=== PATIENT | female | born 1985 | race Caucasian/White ===

== ENCOUNTER 2019-06-13 14:25 | Inpatient (IN) | payer OTHER ==
--- NOTE | 2019-06-13 15:09 | XR ---
EXAMINATION TYPE: XR chest 2V DATE OF EXAM: 06/13/2019 COMPARISON: NONE HISTORY: Pneumothorax TECHNIQUE: Frontal and lateral views of the chest are obtained. FINDINGS: Large left pneumothorax is present. No evident pleural effusion. Heart to exclude tension. Heart is small. Apical pleural thickening noted on the right. IMPRESSION: Large left pneumothorax.
[2019-06-13] MEDS ORDERED: KETOROLAC 30 MG/ML 1 ML VIAL IVP STA (15:14)
[2019-06-13] MEDS ORDERED: LIDOCAINE 1% INJ 10MG/ML (20 ML MDV) SQ ONE (15:15)
[2019-06-13] MEDS: MORPHINE SULFATE 4 MG/ML SYRINGE IVP STA ×2 (15:44→15:51)
[2019-06-13 15:46] LABS: Basophils % (A) 0 %; Eosinophils # (A) 0.2 k/uL (0-0.7); Eosinophils % (A) 3 %; HCT 39.7 % (34.0-46.0); HGB 13.6 gm/dL (11.4-16.0); Lymphocytes # (A) 1.4 k/uL (1.0-4.8); Lymphocytes % (A) 22 %; MCH 32.7 pg (25.0-35.0); MCHC 34.3 g/dL (31.0-37.0); MCV 95.6 fL (80.0-100.0); Mean Platelet Volume 7.1; Monocytes # (A) 0.4 k/uL (0-1.0); Monocytes % (A) 7 %; Neutrophils # (A) 4.1 k/uL (1.3-7.7); Neutrophils % (A) 65 %; Platelet Count 377 k/uL (150-450); RBC 4.15 m/uL (3.80-5.40); RDW 12.7 % (11.5-15.5); WBC 6.3 k/uL (3.8-10.6)
[2019-06-13 15:53] LABS: African American GFR (CKD) >90 (>60 ml/min/1.73 sqM); Anion Gap 10 mmol/L; Blood Urea Nitrogen 12 mg/dL (7-17); Calcium 9.8 mg/dL (8.4-10.2); Carbon Dioxide 22 mmol/L (22-30); Chloride 107 mmol/L (98-107); Glucose 92 mg/dL (74-99); Non-African American GFR(CKD) >90 (>60 ml/min/1.73 sqM); Potassium 3.8 mmol/L (3.5-5.1); Sodium 139 mmol/L (137-145)
[2019-06-13] MEDS ORDERED: ACETAMINOPHEN TAB 325 MG TAB PO PRN (15:57)
[2019-06-13] MEDS ORDERED: IBUPROFEN 400 MG TAB PO PRN (15:57)
[2019-06-13] MEDS ORDERED: NALOXONE 0.4 MG/ML 1 ML VIAL IV PRN (15:57)
--- NOTE | 2019-06-13 16:11 | XR ---
EXAMINATION TYPE: XR chest 1V portable DATE OF EXAM: 06/13/2019 COMPARISON: NONE HISTORY: Follow-up pneumothorax TECHNIQUE: Single frontal view of the chest is obtained. FINDINGS: Left-sided left pleural catheter noted. Pneumothorax is much improved and is estimated at 10%. The ca rdiac silhouette size is within normal limits. The osseous structures are intact. IMPRESSION: 1. Left-sided left pleural catheter noted. Pneumothorax is much improved and is estimated at 10%.
--- NOTE | 2019-06-13 16:11 | ED ---
General Adult HPI - General Chief complaint: Recheck/Abnormal Lab/Rx Stated complaint: Collapsed Lung, Chest Pain Time Seen by Provider: 06/13/19 14:36 Source: patient, RN notes reviewed, old records reviewed Mode of arrival: wheelchair Limitations: no limitations - History of Present Illness Initial comments: 33-year-old female presents for evaluation of abnormal outpatient x-ray. Patient states she's had some minor left-sided mid back pain as well as some dyspnea over the past one week. Yesterday she had several episodes of nausea vomiting. She was sent by her primary care physician for an outpatient chest x- ray which showed a pneumothorax. She presented to the emergency department for evaluation. Patient denies pain complaints time my evaluation, denies significant dyspnea. She states she's had a mild cough. She is a smoker. - Related Data Allergies Allergy/AdvReac Type Severity Reaction Status Date / Time No Known Allergies Allergy Verified 06/13/19 14:35 Review of Systems ROS Statement: Those systems with pertinent positive or pertinent negative responses have been documented in the HPI. ROS Other: All systems not noted in ROS Statement are negative. Past Medical History Past Medical History: No Reported History History of Any Multi-Drug Resistant Organisms: None Reported Past Surgical History: No Surgical Hx Reported Past Psychological History: No Psychological Hx Reported Smoking Status: Current every day smoker Past Alcohol Use History: Occasional Past Drug Use History: None Reported General Exam Limitations: no limitations General appearance: alert, in no apparent distress Head exam: Present: atraumatic, normocephalic Eye exam: Present: normal appearance, PERRL ENT exam: Present: normal exam Neck exam: Present: normal inspection. Absent: tenderness, meningismus Respiratory exam: Present: respiratory distress (mild), decreased breath sounds (Decreased air entry on the left) Cardiovascular Exam: Present: regular rate, normal rhythm GI/Abdominal exam: Present: soft, distended Extremities exam: Present: normal inspection, normal capillary refill. Absent: pedal edema Neurological exam: Present: alert, oriented X3, CN II-XII intact. Absent: motor sensory deficit Psychiatric exam: Present: normal affect, normal mood Skin exam: Present: warm, dry, intact. Absent: cyanosis, diaphoretic Course Vital Signs 06/13/19 06/13/19 06/13/19 14:32 15:44 15:54 Temperature 98.8 F Pulse Rate 97 82 73 Respiratory 18 18 18 Rate Blood Pressure 113/88 136/84 128/81 O2 Sat by Pulse 95 99 100 Oximetry Procedures - Benson Protocol (Time Out) Procedure Performed:: thoravent insertion Nurse: Adelita Cifuentes Patient Identification (2 identifiers required): Verbal, Arm Band, Name, Birthdate Patient/Legal Government Guard has Confirmed: Identity, Site, Procedure, Consent Site: (L) chest Site Marked: Not Applicable Site Verified With Patient/Guardian: Yes Final Confirmation: Procedure, Site, Special Equipment, Confirmed w/Provider - Chest Tube Insertion Consent Obtained: written consent Side of Procedure: left Indication: Pneumothorax Placed on monitor/pulse oximetry: Yes Site Prep: Chloroprep Local Anesthesia: Lidocaine 1% Amount (mLs): 5 Insertion Site: Other (Second intercostal space, mid clavicular line) Scalpel: #11 Open into Pleural Space Using: Trocar Tube Size (Danish): Other (7-Danish) Returns: Air Sutured in Place: No Attached to Suction: Yes Type of Suction: Pleuravac Repeat X-ray Results: Lung Inflated Patient Tolerated Procedure: well Medical Decision Making - Medical Decision Making 33-year-old female presenting with spontaneous pneumothorax, mild dyspnea and cough. Patient has decreased air entry in the left. X-rays repeated in the emergency department showing large left-sided pneumothorax. I did discuss this case with pulmonology Dr. Murphy, regarding chest tube placement. Recommends placement in the emergency department. Patient signs consent and a left anterior mid clavicular thoravent is placed in the emergency department. X-ray shows nearly complete expansion of the left lung. Patient's vitals remained stable both prior to, during and after the procedure. She will be admitted with pulmonology on consult. IV is established, laboratory studies will be sent these are pending. - Lab Data Result diagrams: 06/13/19 15:25 06/13/19 15:25 Lab Results 06/13/19 06/13/19 Range/Units 15:25 15:25 WBC 6.3 (3.8-10.6) k/uL RBC 4.15 (3.80-5.40) m/uL Hgb 13.6 (11.4-16.0) gm/dL Hct 39.7 (34.0-46.0) % MCV 95.6 (80.0-100.0) fL MCH 32.7 (25.0-35.0) pg MCHC 34.3 (31.0-37.0) g/dL RDW 12.7 (11.5-15.5) % Plt Count 377 (150-450) k/uL Neutrophils % 65 % Lymphocytes % 22 % Monocytes % 7 % Eosinophils % 3 % Basophils % 0 % Neutrophils # 4.1 (1.3-7.7) k/uL Lymphocytes # 1.4 (1.0-4.8) k/uL Monocytes # 0.4 (0-1.0) k/uL Eosinophils # 0.2 (0-0.7) k/uL Basophils # 0.0 (0-0.2) k/uL Sodium 139 (137-145) mmol/L Potassium 3.8 (3.5-5.1) mmol/L Chloride 107 (98-107) mmol/L Carbon Dioxide 22 (22-30) mmol/L Anion Gap 10 mmol/L BUN 12 (7-17) mg/dL Creatinine 0.55 (0.52-1.04) mg/dL Est GFR (CKD-EPI)AfAm >90 (>60 ml/min/1.73 sqM) Est GFR (CKD-EPI)NonAf >90 (>60 ml/min/1.73 sqM) Glucose 92 (74-99) mg/dL Calcium 9.8 (8.4-10.2) mg/dL Critical Care Time Critical Care Time: Yes Total Critical Care Time: 35 Disposition Clinical Impression: Spontaneous pneumothorax Disposition: ADMITTED IP TO THIS [facility] Condition: Stable Is patient prescribed a controlled substance at d/c from ED?: No Referrals: Shen Jacobo Jr, DO [Primary Care Provider] - 1-2 days Decision to Admit Reason: Admit from EC Decision Date: 06/13/19 Decision Time: 16:10
--- NOTE | 2019-06-13 17:24 | P.HPIM ---
History of Present Illness H&P Date: 06/13/19 Chief Complaint: spontaneous left pneumothorax this is a 33-year-old very pleasant female with spontaneous left pneumothorax initially only approximately 15%, send patient to emergency room at [facility] the x-ray was repeated at which time it showed a large of more than 50% p neumothorax. Patient had a thorough vent placed repeat chest x-ray demonstrates a completely inflated lung. Patient has had a small amount of chest discomfort over the last week and slight discomfort with deep deep breaths. It is a known smoker other than childbirth has never been hospitalized never been ill Review of Systems Constitutional: Reports as per HPI Ears, nose, mouth and throat: Reports as per HPI Cardiovascular: Reports dyspnea on exertion Respiratory: Reports pain on inspiration (very mild discomfort on inspiration) Genitourinary: Reports as per HPI Menstruation: Reports as per HPI Musculoskeletal: Reports as per HPI Integumentary: Reports as per HPI Neurological: Reports as per HPI Past Medical History Past Medical History: No Reported History History of Any Multi-Drug Resistant Organisms: None Reported Past Surgical History: No Surgical Hx Reported Past Psychological History: No Psychological Hx Reported Smoking Status: Current every day smoker Past Alcohol Use History: Occasional Past Drug Use History: None Reported Medications and Allergies Home Medications Medication Instructions Recorded Confirmed Type Amoxicillin 875 mg PO BID 06/13/19 06/13/19 History Ibuprofen [Motrin] 800 mg PO TID PRN 06/13/19 06/13/19 History medroxyPROGESTERone [Depo-Provera] 150 mg IM Q90D 06/13/19 06/13/19 History Allergies Allergy/AdvReac Type Severity Reaction Status Date / Time No Known Allergies Allergy Verified 06/13/19 16:21 Physical Exam Osteopathic Statement: *. No significant issues noted on an osteopathic structural exam other than those noted in the History and Physical/Consult. Vitals: Vital Signs Temp Pulse Resp BP Pulse Ox 06/13/19 16:00 78 18 126/85 98 06/13/19 15:54 73 18 128/81 100 06/13/19 15:44 82 18 136/84 99 06/13/19 14:32 98.8 F 97 18 113/88 95 Intake and Output 06/13/19 06/13/19 06/13/19 06:59 14:59 22:59 Other: Weight 58.967 kg General: [Patient awake, alert and oriented times 3. Patient in no acute distress.] HEENT: [PERRL. EOMI. No pharyngeal erythema or exudate.] Neck: [No adenopathy.] Cardiac: [Heart regular in rate and rhythm. No S3. No S4. No clicks, rubs. No murmur.] Lungs: [Clear to auscultation bilaterally.left side thoravent Abdomen: [No mass. No organomegaly. Bowel sounds presnt and normoactive in all 4 quadrants.] Extremes: [No edema no cyanosis no claudication normal pulses] : normal female genitalia Musculoskeletal: [No joint erythema, edema or tenderness.] Skin: [No rash.] Neurologic: [No lateralizing deficits. CN II - XII grossly intact.] Lymphatic: [No adenopathy.] Results CBC & Chem 7: 06/13/19 15:25 06/13/19 15:25 Assessment and Plan (1) Spontaneous pneumothorax Narrative/Plan: 33-year-old female cigarette smoker spontaneous pneumo Recommend smoking cessation Heimlich valve in the morning Lung remains inflated probably home in the afternoon to enjoy Kelly Current Visit: Yes Status: Acute Code(s): J93.83 - OTHER PNEUMOTHORAX SNO MED Code(s): 30654426 Time with Patient: Greater than 30
--- NOTE | 2019-06-13 17:53 | P.CNPUL ---
History of Present Illness Consult date: 06/13/19 Reason for consult: pneumothorax Chief complaint: left-sided chest pain and shortness of breath History of present illness: this is a 33-year-old female with no previous medical history, smoker, patient presented to the ER with 1 week history of left-sided chest discomfort, shortness of breath, pleuritic chest pain especially over the scapula for the last 1 week. Chest x-ray showed 50% pneumothorax. Patient had a thoravent placed by the ER physician, and her lung fully expanded. Patient was admitted, her chest tube is connected to suction, and I was asked to see her on consultation. During my evaluation, patient was asymptomatic, she had no chest pain, no cough, no wheezing, no shortness of breath. I reviewed the chest x-ray prior to chest tube placement and the chest x-ray after the tube placement and t here is clearly a significant improvement. Patient had no previous history of pneumothorax, she had no previous history of trauma to the chest. Review of Systems constitutional: Denies fever chills or weight loss. HEENT: Denies any blurred vision sore throat earache or headache. Pulmonary: As noted in HPI. Cardiac: Denies any symptoms of syncope, no palpitations, no anginal symptoms. No orthopnea no PND. GI: Denies any nausea vomiting abdominal pain melena or hematemesis Genitourinary: Denies any dysuria frequency urgency or hematuria. Musko skeletal denies any arthralgia or myalgia. Neurologic: Denies any headache blurred vision no dizziness Psychiatric denies any symptoms of active depression Hematologic: Denies any clotting bleeding or bruising Skin: Denies any pruritus or rashes. Endocrine: Denies any heat or cold intolerance denies any polyuria place regular polydipsia. Past Medical History Past Medical History: No Reported History History of Any Multi-Drug Resistant Organisms: None Reported Past Surgical History: No Surgical Hx Reported Past Psychological History: No Psychological Hx Reported Smoking Status: Current every day smoker Past Alcohol Use History: Occasional Past Drug Use History: None Reported Medications and Allergies Home Medications Medication Instructions Recorded Confirmed Type Amoxicillin 875 mg PO BID 06/13/19 06/13/19 History Ibuprofen [Motrin] 800 mg PO TID PRN 06/13/19 06/13/19 History medroxyPROGESTERone [Depo-Provera] 150 mg IM Q90D 06/13/19 06/13/19 History Allergies Allergy/AdvReac Type Severity Reaction Status Date / Time No Known Allergies Allergy Verified 06/13/19 16:21 Physical Exam Vitals: Vital Signs Temp Pulse Pulse Resp BP BP Pulse Ox 06/13/19 17:14 98.1 F 76 17 139/79 97 06/13/19 16:00 78 18 126/85 98 06/13/19 15:54 73 18 128/81 100 06/13/19 15:44 82 18 136/84 99 06/13/19 14:32 98.8 F 97 18 113/88 95 Intake and Output 06/13/19 06/13/19 06/13/19 06:59 14:59 22:59 Other: Weight 58.967 kg Physical Exam: Revealed a 33-year-old female in no distress. Head: Atraumatic normocephalic. HEENT:[Neck is supple.] [No neck masses.] [No thyromegaly.] [No JVD.] Chest: [Clear throughout, no crackles, no rhonchi, no wheezes.]left sided chest tube is noted/thoravent, connected to Pleuravac. Cardiac Exam: [Normal S1 and S2, no S3 gallop, no murmur.] Abdomen: [Soft, nontender, no megaly, no rebound, no guarding, normal bowel sounds.] Extremities: [No clubbing, no edema, no cyanosis.] Neurological Exam: [No focal neurologic deficit.] psychiatric: Normal mood affect and normal mental status examination. Skin: No rashes. Results - Laboratory Findings CBC and BMP: 06/13/19 15:25 06/13/19 15:25 - Diagnostic Findings Chest x-ray: image reviewed (as noted in HPI.) Assessment and Plan Assessment: impression: Acute spontaneous left-sided pneumothorax Tobacco dependence syndrome Status post placement of a thoravent by the ER physician and complete expansion of the left lung. Recommendation: Continue chest tube to suction. Counseled regarding smoking cessation. Repeat chest x-ray in a.m., consider changing chest tube to waterseal, and hopefully can send the patient home with tube in place, and have her follow-up with me on outpatient basis in the office Thoracic surgery will evaluate in a.m., consult was initiated we'll continue to follow discussed her condition with her and her primary care physician Dr. Jacobo.. Time with Patient: Greater than 30
[2019-06-13] MEDS: HYDROmorphone 0.5 MG/0.5 ML SYRINGE IVP PRN ×2 (17:57→21:03)
[2019-06-14] MEDS: HYDROmorphone 0.5 MG/0.5 ML SYRINGE IVP PRN ×4 (00:16→10:15)
[2019-06-14 00:49] VITALS: TEMP 98.3
--- NOTE | 2019-06-14 08:21 | XR ---
EXAMINATION TYPE: XR chest 2V DATE OF EXAM: 06/14/2019 COMPARISON: Prior chest x-ray 06/13/2019 HISTORY: Pneumothorax TECHNIQUE: Frontal and lateral views of the chest are obtained. FINDINGS: Small left apical pneumothorax is noted, left-sided chest tube is in place. Subcutaneous e mphysema noted. No evident pleural effusion. Heart size is unchanged. Apical pleural thickening noted on the right. IMPRESSION: Small left apical pneumothorax.
[2019-06-14 08:50] VITALS: BP 101/65; PULSE 56; RESP 16
--- NOTE | 2019-06-14 08:59 | P.GSCN ---
History of Present Illness Consult date: 06/14/19 Reason for Consult: Left-sided spontaneous pneumothorax Requesting physician: Newton Murphy History of present illness: This is a 33-year-old active female who follows on an outpatient basis with Dr. Jacobo. She has no previous medical history except current tobacco dependence. Apparently she had been experiencing left-sided chest discomfort and shortness of breath for approximately 1 week. She presented to [facility] emergency room, chest x-ray demonstrated 50% left-sided pneumothorax. She denied any chest trauma or any previous history of spontaneous pneumothorax. A thoravent was placed by the emergency room physicians with almost complete reexpansion. She was admitted for further management with consultation placed to pulmonology. Her thoravent was connected to an atrium, and placed to contin uous suction upon admit to the floor. Consultation was placed to Dr. López from cardiothoracic surgery for further management. Review of Systems Review of systems was completed and was negative except as noted in the HPI - Respiratory Reports dyspnea, Reports pain, Reports pain on inspiration Past Medical History Past Medical History: No Reported History History of Any Multi-Drug Resistant Organisms: None Reported Past Surgical History: No Surgical Hx Reported Past Psychological History: No Psychological Hx Reported Smoking Status: Current every day smoker Past Alcohol Use History: Occasional Past Drug Use History: None Reported - Past Family History Mother Family Medical History: No Reported History Father Family Medical History: No Reported History Medications and Allergies Home Medications Medication Instructions Recorded Confirmed Type Amoxicillin 875 mg PO BID 06/13/19 06/13/19 History Ibuprofen [Motrin] 800 mg PO TID PRN 06/13/19 06/13/19 History medroxyPROGESTERone [Depo-Provera] 150 mg IM Q90D 06/13/19 06/13/19 History Allergies Allergy/AdvReac Type Severity Reaction Status Date / Time No Known Allergies Allergy Verified 06/13/19 16:21 Surgical - Exam Vital Signs Temp Pulse Resp BP Pulse Ox 98.8 F 97 18 113/88 95 06/13/19 14:32 06/13/19 14:32 06/13/19 14:32 06/13/19 14:32 06/13/19 14:32 - General Patient does continue to have slight discomfort at the thoravent insertion site well developed, well nourished, no distress - Eyes PERRL, normal ocular movement - ENT normal mucosa - Neck no masses, no bruits, trachea midline - Respiratory Lungs sounds clear bilaterally. Respirations even, nonlabored. Currently on room air with oxygen saturation 98%. Strong cough. No chest wall deformities, no clubbing or cyanosis present. Left sided thoravent present to waterseal since x-ray this morning, no air leak present. - Cardiovascular S1, S2 present. Regular rate and rhythm. Palpable peripheral pulses bilaterally. No edema present. No calf pain or tenderness noted. - Abdomen Abdomen: soft, non tender, bowel sounds - Genitourinary Deferred - Rectum Deferred - Integumentary no rash, no growths, no abnormal pigmentation - Neurologic normal coordination, normal sensation - Musculoskeletal normal posture - Psychiatric oriented to time, oriented to person, oriented to place, speech is normal, memory intact Results - Labs 06/13/19 15:25 06/13/19 15:25 Diabetes panel 06/13/19 Range/Units 15:25 Sodium 139 (137-145) mmol/L Potassium 3.8 (3.5-5.1) mmol/L Chloride 107 (98-107) mmol/L Carbon Dioxide 22 (22-30) mmol/L BUN 12 (7-17) mg/dL Creatinine 0.55 (0.52-1.04) mg/dL Glucose 92 (74-99) mg/dL Calcium 9.8 (8.4-10.2) mg/dL Calcium panel 06/13/19 Range/Units 15:25 Calcium 9.8 (8.4-10.2) mg/dL Pituitary panel 06/13/19 Range/Units 15:25 Sodium 139 (137-145) mmol/L Potassium 3.8 (3.5-5.1) mmol/L Chloride 107 (98-107) mmol/L Carbon Dioxide 22 (22-30) mmol/L BUN 12 (7-17) mg/dL Creatinine 0.55 (0.52-1.04) mg/dL Glucose 92 (74-99) mg/dL Calcium 9.8 (8.4-10.2) mg/dL Adrenal panel 06/13/19 Range/Units 15:25 Sodium 139 (137-145) mmol/L Potassium 3.8 (3.5-5.1) mmol/L Chloride 107 (98-107) mmol/L Carbon Dioxide 22 (22-30) mmol/L BUN 12 (7-17) mg/dL Creatinine 0.55 (0.52-1.04) mg/dL Glucose 92 (74-99) mg/dL Calcium 9.8 (8.4-10.2) mg/dL - Imaging Chest x-ray: image reviewed Assessment and Plan Assessment: 1. Spontaneous left-sided pneumothorax, first event, status post thoravent placement by the emergency room physicians 2. Current tobacco dependence Plan: The patient was seen and examined at the bedside. Chart/diagnostics were reviewed. Case will be discussed in detail with Dr. Dennison. Chest x-ray this morning is stable. There is no air leak present in the atrium. Atrium was removed and waterseal cap was placed to the thoravent with no fluctuation in the red diaphragm. We will obtain a repeat CXR after having been on water seal for 2 hours. If repeat CXR is stable, from our standpoint patient may be discharged to home to follow-up with Dr. Dennison on 06/16/19 for Thoravent removal, with CXR to be completed prior to appointment. She was taught what to look for with the red diaphragm movement. Our contact information was provided should she have any questions. Recommend discharge medications Motrin and Tylenol for pain control. Incentive spirometry was ordered and she should be encouraged to utilize it. We strongly recommended smoking cessation. Discharge planning per primary care services. Thank you Dr. Murphy for this consult. Please call us with any further questions. Time with Patient: Greater than 30
--- NOTE | 2019-06-14 10:30 | P.PN ---
Subjective Progress Note Date: 06/14/19 Principal diagnosis: Left-sided chest pain and shortness of breath this is a 33-year-old female with no previous medical history, smoker, patient presented to the ER with 1 week history of left-sided chest discomfort, shortness of breath, pleuritic chest pain especially over the scapula for the last 1 week. Chest x-ray showed 50% pneumothorax. Patient had a thoravent placed by the ER physician, and her lung fully expanded. Patient was admitted, her chest tube is connected to suction, and I was asked to see her on consultation. During my evaluation, patient was asymptomatic, she had no chest pain, no cough, no wheezing, no shortness of breath. I reviewed the chest x-ray prior to chest tube placement and the chest x-ray after the tube placement and there is clearly a significant improvement. Patient had no previous history of pneumothorax, she had no previous history of trauma to the chest. On 06/14/2017 patient seen in follow-up on medical surgical floor. Patient had her Thoravent to waterseal last night, and this morning the pleuravac was removed, and waterseal plug was placed. Chest x-ray shows small left apical pneumothorax, no shortness of breath, some slight discomfort in her left chest due to the presence of a chest tube. No acute distress, room air pulse ox is 98%, hemodynamically stable, no fever or chills, lung sounds reveal equal breath sounds bilaterally, no new labs today, CT surgery is following, and repeat chest x-ray is pending, if the left lung stays expanded patient will be considered for discharge home with the Thoravent in place. Objective - Vital Signs Vital signs: Vital Signs Temp 98.3 F 06/14/19 07:00 Pulse 56 L 06/14/19 07:00 Resp 16 06/14/19 07:00 BP 101/65 06/14/19 07:00 Pulse Ox 98 06/14/19 08:42 Intake & Output 06/13/19 06/14/19 06/14/19 18:59 06:59 18:59 Intake Total 120 Balance 120 Weight 58.967 kg Intake: Oral 120 Other: Voiding Method Toilet - Exam GENERAL EXAM: Alert, very pleasant, 33-year-old white female, with left chest Thoravent in place, room air pulse ox 98%, comfortable in no apparent distress. HEAD: Normocephalic/atraumatic. EYES: Normal reaction of pupils, equal size. Conjunctiva pink, sclera white. NOSE: Clear with pink turbinates. THROAT: No erythema or exudates. NECK: No masses, no JVD, no thyroid enlargement, no adenopathy. CHEST: No chest wall deformity. Symmetrical expansion. left sided Thoravent in place LUNGS: Equal air entry with no crackles, wheeze, rhonchi or dullness. CVS: Regular rate and rhythm, normal S1 and S2, no gallops, no murmurs, no rubs ABDOMEN: Soft, nontender. No hepatosplenomegaly, normal bowel sounds, no guarding or rigidity. EXTREMITIES: No clubbing, no edema, no cyanosis, 2+ pulses and upper and lower extremities. MUSCULOSKELETAL: Muscle strength and tone normal. SPINE: No scoliosis or deformity SKIN: No rashes CENTRAL NERVOUS SYSTEM: Alert and oriented -3. No focal deficits, tone is normal in all 4 extremities. PSYCHIATRIC: Alert and oriented -3. Appropriate affect. Intact judgment and insight. - Labs CBC & Chem 7: 06/13/19 15:25 06/13/19 15:25 Assessment and Plan Plan: Assessment: #1. Acute spontaneous left-sided pneumothorax #2. Tobacco dependence syndrome #3. Status post placement of a Thoravent by ER physician and complete expansion of the left Plan: Chest x-ray has been reviewed, showing very small left apical pneumothorax, left Thoravent was capped with a waterseal plug, repeat chest x-ray is pending, clinically patient is stable, she is working on incentive spirometer, equal breath sounds bilaterally, she is on room air, hemodynamically stable, she'll be considered for discharge home if lung stays expanded with a Thoravent in place, and she will see Dr. Dennison in the office on June 16. We'll follow-up with Dr. Murphy in the office in one week I performed a history & physical examination of the patient and discussed their management with my nurse practitioner, Triny Calzada. I reviewed the nurse practitioner's note and agree with the documented findings and plan of care. Lung sounds are positive for clear breath sounds. The findings and the impression was discussed with the patient. I attest to the documentation by the nurse practitioner. Time with Patient: Less than 30
--- NOTE | 2019-06-14 10:46 | P.DS ---
Providers Date of admission: 06/13/19 15:57 Expected date of discharge: 06/14/19 Attending physician: Shen Jacobo Consults: 06/13/19 15:58 Consult Physician Urgent Consulting Provider: Newton Murphy Consult Reason/Comments: Spontaneous pneumo Do you want consulting provider notified?: Already Contacted 06/13/19 16:28 Consult Physician Routine Consulting Provider: Marley López Consult Reason/Comments: ptx spontaneous Do you want consulting provider notified?: Yes, Notify in am Primary care physician: Shen Jacobo - Discharge Diagnosis(es) (1) Spontaneous pneumothorax spurs presented to the office approximately one week ago with minimal complaint of chest discomfort known smoker is placed on amoxicillin Turned to the office yesterday morning with persistent complaint, was sent to the hospital for a chest x-ray, subsequent 10-15% pneumothorax was noted I was notified by radiology, had the medical office asst no constipation down and much to my surprise the patient had presented back to the office for her Depo- Provera shot By this time I have made arrangements at [facility] for ER evaluation, repeat chest x-ray and admission Repeat chest x-ray by this time demonstrated approximately 50% pneumo patient was satting at 100% with very little discomfort Was subsequently admitted with a consultation with pulmonary medicine, thoracic surgery, and a subsequent Flovent chest tube was placed in the second left intercostal space and patient was made to be comfortable General: [Patient awake, alert and oriented times 3. Patient in no acute distress.] HEENT: [PERRL. EOMI. No pharyngeal erythema or exudate.] Neck: [No adenopathy.] Cardiac: [Heart regular in rate and rhythm. No S3. No S4. No clicks, rubs. No murmur.] Lungs: [Clear to auscultation bilaterally.chest tube second intercostal space left side Abdomen: [No mass. No organomegaly. Bowel sounds presnt and normoactive in all 4 quadrants.] Extremes: [No edema no cyanosis no claudication normal pulses] : [normal female genitalia] Musculoskeletal: [No joint erythema, edema or tenderness.] Skin: [No rash.] Neurologic: [No lateralizing deficits. CN II - XII grossly intact.] Lymphatic: [No adenopathy.] Current Visit: Yes Status: Acute Hospital Course: same as above Assessment: same Patient Condition at Discharge: Stable Plan - Discharge Summary New Discharge Prescriptions: No Action Ibuprofen [Motrin] 800 mg PO TID PRN PRN Reason: Pain Amoxicillin 875 mg PO BID medroxyPROGESTERone [Depo-Provera] 150 mg IM Q90D Discharge Medication List Amoxicillin 875 mg PO BID 06/13/19 [History] Ibuprofen [Motrin] 800 mg PO TID PRN 06/13/19 [History] medroxyPROGESTERone [Depo-Provera] 150 mg IM Q90D 06/13/19 [History] Follow up Appointment(s)/Referral(s): Newton Murphy MD [STAFF PHYSICIAN] - 1 Week Shen Jacobo Jr, DO [Primary Care Provider] - 1-2 days Jakob Dennison MD [STAFF PHYSICIAN] - 06/16/19 12:30 pm (Please obtain X-ray at the hospital @ 11:00 before your appointment) Ambulatory/Diagnostic Orders: XR chest 2V [RAD.AMB] Time Frame: 06/16/19, Facility: [facility], Location: [facility] Discharge Disposition: HOME SELF-CARE
--- NOTE | 2019-06-14 12:46 | XR ---
EXAMINATION TYPE: XR chest 2V DATE OF EXAM: 06/14/2019 COMPARISON: Chest x-ray earlier today. HISTORY: Left lung pneumothorax and chest tube. TECHNIQUE: Frontal and lateral views of the chest are obtained. FINDINGS: There is stable size small left apical pneumothorax left anterior chest tube extending inf eriorly after suction is turned off. No mediastinal shift. [id number] biapical pleural/parenchy mal scarring. The cardiac silhouette size remains within normal limits. The osseous structures are intact. IMPRESSION: Stable small size left apical pneumothorax after suction turned off from chest tube.
== END 2019-06-14 11:50 | disposition home or self-care (01) | DRG 201 ==
LOC: EC 14:25 → 4SSUR 15:57
PROVIDERS: ADMIT Family Medicine; ATTEND Family Medicine
PROC: 0W9B30Z Drainage of Left Pleural Cavity with Drainage Device, Percutaneous Approach (ICD-10-PCS; principal; 2019-06-13)
DX: J93.83 Other pneumothorax (principal); F17.210 Nicotine dependence, cigarettes, uncomplicated; Z79.1 Long term (current) use of non-steroidal anti-inflammatories (NSAID); Z79.3 Long term (current) use of hormonal contraceptives
CPT/HCPCS: 32551; 36415; 71045; 71046; 80048; 85025; 94760; 96374; 96375; 99291

== ENCOUNTER → 2019-06-16 | Outpatient (CLI) | payer OTHER ==
--- NOTE | 2019-06-16 11:21 | XR ---
EXAMINATION TYPE: XR chest 2V DATE OF EXAM: 06/16/2019 COMPARISON: 06/14/2019 TECHNIQUE: PA and lateral views submitted. HISTORY: Pneumothorax FINDINGS: The lungs are clear and there is no pleural effusion or focal pneumonia. Left-sided chest tube seen and there is a stable approximately 5% left pneumothorax. Right apical pleural thickening noted. Oss eous structures stable. IMPRESSION: 1. Able 5% left apical pneumothorax.
== END | disposition home or self-care (01) ==
LOC: RADXRMAIN 11:08
PROVIDERS: ATTEND Nurse Practitioner Acute Care
DX: J93.83 Other pneumothorax (principal)
CPT/HCPCS: 71046

== ENCOUNTER 2019-06-24 13:00 | Inpatient (IN) | payer OTHER ==
[2019-06-24] MEDS ORDERED: NALOXONE 0.4 MG/ML 1 ML VIAL IV PRN (13:34)
--- NOTE | 2019-06-24 13:34 | ED ---
General Adult HPI - General Chief complaint: Shortness of Breath Stated complaint: Collapsed Lung Time Seen by Provider: 06/24/19 13:18 Source: patient, RN/MD (Case was discussed with Dr. Bynum prior to patient arrival), RN notes reviewed, old records reviewed Mode of arrival: ambulatory Limitations: no limitations - History of Present Illness Initial comments: Patient is a pleasant 33-year-old female presenting to the emergency Department with left shoulder discomfort. Patient did have similar symptoms recently diagnosed with pneumothorax. Patient did have Thora vent placed and removed around a week ago. Patient states left shoulder discomfort is similar to that. Patient did call her doctor and have x-ray done just prior to arrival. He adv ised her to come to the emergency department. Patient does not have shortness of breath. Patient has mild discomfort left anterior chest. - Related Data Home Medications Medication Instructions Recorded Confirmed Amoxicillin 875 mg PO BID 06/13/19 06/13/19 Ibuprofen [Motrin] 800 mg PO TID PRN 06/13/19 06/13/19 medroxyPROGESTERone [Depo-Provera] 150 mg IM Q90D 06/13/19 06/13/19 Allergies Allergy/AdvReac Type Severity Reaction Status Date / Time No Known Allergies Allergy Verified 06/24/19 13:02 Review of Systems ROS Statement: Those systems with pertinent positive or pertinent negative responses have been documented in the HPI. ROS Other: All systems not noted in ROS Statement are negative. Constitutional: Denies: fever Eyes: Denies: eye pain ENT: Denies: ear pain Respiratory: Reports: as per HPI Cardiovascular: Reports: chest pain Endocrine: Denies: fatigue Gastrointestinal: Denies: abdominal pain Genitourinary: Denies: dysuria Musculoskeletal: Reports: as per HPI Skin: Denies: lesions Neurological: Denies: headache Past Medical History Past Medical History: No Reported History Additional Past Medical History / Comment(s): pneumothorax History of Any Multi-Drug Resistant Organisms: None Reported Past Surgical History: No Surgical Hx Reported Additional Past Surgical History / Comment(s): thoravent Past Psychological History: No Psychological Hx Reported Smoking Status: Former smoker Past Alcohol Use History: Occasional Past Drug Use History: None Reported - Past Family History Mother Family Medical History: No Reported History Father Family Medical History: No Reported History General Exam Limitations: no limitations General appearance: alert, in no apparent distress Head exam: Present: normocephalic Eye exam: Present: normal appearance Neck exam: Present: normal inspection Respiratory exam: Present: chest wall tenderness (Minimal tenderness left anteri or chest), decreased breath sounds (Mild decreased air change left side) Cardiovascular Exam: Present: regular rate, normal rhythm GI/Abdominal exam: Present: soft. Absent: tenderness Extremities exam: Present: normal inspection. Absent: pedal edema, calf tenderness Back exam: Present: normal inspection Neurological exam: Present: alert Psychiatric exam: Present: normal affect, normal mood Skin exam: Present: normal color Course Vital Signs 06/24/19 13:02 Temperature 98.3 F Pulse Rate 92 Respiratory 18 Rate Blood Pressure 145/86 O2 Sat by Pulse 98 Oximetry - Reevaluation(s) Reevaluation #1: 06/24/19 13:40 Case was discussed with practitioner Vivian working with Dr. Brunner who does recommend observation and repeat chest x-ray and a proximal he 4 hours. They will consult. Dr. Swartz has been paged. Disposition Clinical Impression: Recurrent spontaneous pneumothorax Disposition: ADMITTED IP TO THIS HOSP Is patient prescribed a controlled substance at d/c from ED?: No Referrals: Shen Jacobo Jr, DO [Primary Care Provider] - 1-2 days Decision Time: 13:34
[2019-06-24 13:53] LABS: Basophils % (A) 0 %; Eosinophils # (A) 0.1 k/uL (0-0.7); Eosinophils % (A) 1 %; HCT 42.7 % (34.0-46.0); HGB 14.1 gm/dL (11.4-16.0); Lymphocytes % (A) 19 %; MCH 31.7 pg (25.0-35.0); MCV 95.8 fL (80.0-100.0); Mean Platelet Volume 7.4; Monocytes # (A) 0.4 k/uL (0-1.0); Monocytes % (A) 4 %; Neutrophils % (A) 75 %; Platelet Count 446 k/uL (150-450); RBC 4.45 m/uL (3.80-5.40); RDW 12.9 % (11.5-15.5); WBC 10.6 k/uL (3.8-10.6)
[2019-06-24] MEDS: SODIUM CHLORIDE 0.9% 1,000 ML IV SCH (13:55)
[2019-06-24 14:07] LABS: ALT 14 U/L (4-34); AST 26 U/L (14-36); African American GFR (CKD) >90 (>60 ml/min/1.73 sqM); Albumin 4.9 g/dL (3.5-5.0); Alkaline Phosphatase 54 U/L (38-126); Anion Gap 11 mmol/L; Blood Urea Nitrogen 8 mg/dL (7-17); Calcium 10.2 mg/dL (8.4-10.2); Carbon Dioxide 21 mmol/L (22-30); Chloride 106 mmol/L (98-107); Glucose 103 mg/dL (74-99); Non-African American GFR(CKD) >90 (>60 ml/min/1.73 sqM); Sodium 138 mmol/L (137-145); Total Bilirubin 0.6 mg/dL (0.2-1.3); Total Protein 7.7 g/dL (6.3-8.2)
[2019-06-24 14:31] LABS: INR 1.1 (<1.2); Prothrombin Time 11.3 sec (9.0-12.0)
[2019-06-24 14:38] LABS: Partial Thromboplastin Time 19.8 sec (22.0-30.0)
[2019-06-24] MEDS: HYDROmorphone 0.5 MG/0.5 ML SYRINGE IVP PRN ×2 (14:41→21:41)
--- NOTE | 2019-06-24 15:26 | XR ---
EXAMINATION TYPE: XR chest 1V portable DATE OF EXAM: 06/24/2019, 3:05 PM Comparison: Earlier today, 12:31 PM Clinical History: 33-year-old female left-sided Pneumothorax Findings: Heart normal size. Aorta and pulmonary vasculature within normal limits. Moderate-sized left superior pneumothorax now measuring 4.5 cm versus 3.6 cm, previously. The lung is now pulling away from the l ateral mid hemithorax. No mediastinal shift. No consolidation or pleural effusion. Impression: Increased, now moderate-sized left pneumothorax measuring 4.5 cm to the apex versus 3.6 cm, previousl y. The lung is now pulling away from the mid aspect of the lateral left hemithorax. Estimated at 30%.
--- NOTE | 2019-06-24 16:11 | P.GSCN ---
History of Present Illness Consult date: 06/24/19 Reason for Consult: Left-sided recurrent pneumothorax Requesting physician: Shen Jacobo Jr History of present illness: This is a 33-year-old active female who follows on an outpatient basis with Dr. Bynum. This young lady had been experiencing left-sided chest discomfort with shortness of breath for approximately 1 week. She presented to [facility] emergency room last week with chest x-ray demonstrating 50% left-sided pneumothorax. She had denied any trauma or previous spontaneous pneumothorax. Thoravent was placed by the emergency room physicians with almost complete reexpansion. She was admitted for a couple of days and was discharged to home on with thoravent present. On June 16 she had a chest x-ray demonstrating approximate 5% residual pneumothorax, no air leak present in the thoravent, no shortness of breath or chest pain and the thoravent was removed in the office by Dr. Dennison. She continued to convalesce at home without any problems until this morning when she developed left shoulder discomfort. Because of her history she contacted her primary care physician who requested a chest x-ray be completed at the hospital. The x-ray demonstrated 15% left-sided pneumothorax. She was taken to the emergency room and admitted for management. Repeat chest x-ray does demonstrate increase in the left-sided pneumothorax with no mediastinal shift. Patient is completely asymptomatic, states her shoulder pain is almost completely gone and denies any shortness of breath, oxygenating well. Dr. Brunner from cardiothoracic surgery was consulted for treatment recommendations. Review of Systems Review of systems was completed and was negative except as noted in the HPI Past Medical History Additional Past Medical History / Comment(s): Left-sided spontaneous pneumothorax 06/13/2019 History of Any Multi-Drug Resistant Organisms: None Reported Past Surgical History: No Surgical Hx Reported Additional Past Surgical History / Comment(s): Thoravent placement 06/13/2019 with removal 06/16/2019 Past Psychological History: No Psychological Hx Reported Smoking Status: Former smoker Past Alcohol Use History: Occasional Past Drug Use History: None Reported - Past Family History Mother Family Medical History: No Reported History Father Family Medical History: No Reported History Medications and Allergies Home Medications Medication Instructions Recorded Confirmed Type medroxyPROGESTERone [Depo-Provera] 150 mg IM Q90D 06/13/19 06/24/19 History Allergies Allergy/AdvReac Type Severity Reaction Status Date / Time No Known Allergies Allergy Verified 06/24/19 13:41 Surgical - Exam Vital Signs Temp Pulse Resp BP Pulse Ox 98.3 F 92 18 145/86 98 06/24/19 13:02 06/24/19 13:02 06/24/19 13:02 06/24/19 13:02 06/24/19 13:02 - General well developed, well nourished, no distress, no pain - Eyes PERRL, normal ocular movement - ENT no hearing loss - Neck no masses, no bruits, trachea midline - Respiratory Lungs sounds clear bilaterally. Respirations even, nonlabored. Currently on room air with oxygen saturation 96%. No chest wall deformities. No clubbing or cyanosis present. - Cardiovascular S1, S2 present. Regular rate and rhythm. Palpable peripheral pulses bilaterally. No edema present. No calf pain or tenderness noted. - Abdomen Abdomen: soft, non tender, bowel sounds - Genitourinary Deferred - Rectum Deferred - Integumentary no rash, no growths - Neurologic normal coordination, normal sensation - Musculoskeletal normal gait, normal posture - Psychiatric oriented to time, oriented to person, oriented to place, speech is normal, memory intact Results - Labs 06/24/19 13:37 06/24/19 13:37 Abnormal Lab Results - Last 24 Hours (Table) 06/24/19 06/24/19 06/24/19 Range/Units 13:37 13:37 13:37 Neutrophils # 8.0 H (1.3-7.7) k/uL APTT 19.8 L (22.0-30.0) sec Carbon Dioxide 21 L (22-30) mmol/L Glucose 103 H (74-99) mg/dL Diabetes panel 06/24/19 Range/Units 13:37 Sodium 138 (137-145) mmol/L Potassium 4.0 (3.5-5.1) mmol/L Chloride 106 (98-107) mmol/L Carbon Dioxide 21 L (22-30) mmol/L BUN 8 (7-17) mg/dL Creatinine 0.59 (0.52-1.04) mg/dL Glucose 103 H (74-99) mg/dL Calcium 10.2 (8.4-10.2) mg/dL AST 26 (14-36) U/L ALT 14 (4-34) U/L Alkaline Phosphatase 54 (38-126) U/L Total Protein 7.7 (6.3-8.2) g/dL Albumin 4.9 (3.5-5.0) g/dL Calcium panel 06/24/19 Range/Units 13:37 Calcium 10.2 (8.4-10.2) mg/dL Albumin 4.9 (3.5-5.0) g/dL Pituitary panel 06/24/19 Range/Units 13:37 Sodium 138 (137-145) mmol/L Potassium 4.0 (3.5-5.1) mmol/L Chloride 106 (98-107) mmol/L Carbon Dioxide 21 L (22-30) mmol/L BUN 8 (7-17) mg/dL Creatinine 0.59 (0.52-1.04) mg/dL Glucose 103 H (74-99) mg/dL Calcium 10.2 (8.4-10.2) mg/dL Adrenal panel 06/24/19 Range/Units 13:37 Sodium 138 (137-145) mmol/L Potassium 4.0 (3.5-5.1) mmol/L Chloride 106 (98-107) mmol/L Carbon Dioxide 21 L (22-30) mmol/L BUN 8 (7-17) mg/dL Creatinine 0.59 (0.52-1.04) mg/dL Glucose 103 H (74-99) mg/dL Calcium 10.2 (8.4-10.2) mg/dL Total Bilirubin 0.6 (0.2-1.3) mg/dL AST 26 (14-36) U/L ALT 14 (4-34) U/L Alkaline Phosphatase 54 (38-126) U/L Total Protein 7.7 (6.3-8.2) g/dL Albumin 4.9 (3.5-5.0) g/dL - Imaging Chest x-ray: report reviewed, image reviewed Assessment and Plan Assessment: 1. Left-sided pneumothorax 2. Previous tobacco dependence Plan: The patient was seen and examined at the bedside with Dr. Brunner. Chart/diagnostics were reviewed. There is a slight increase in the pneumothorax on chest x-ray from earlier today. We did offer patient surgery in the form of video-assisted thoracoscopy with bleb resection and pleurodesis. The usual perioperative course was discussed with the patient, and she is agreeable. We will tentatively plan for surgery Thursday with Dr. López. Will monitor daily chest x-rays. Incentive spirometry was ordered and should be encouraged. Continue to encourage smoking cessation. Medical management of other comorbidities per primary care service. More recommendations to follow. Thank you Dr. Jacobo for this consult. We look forward to working with you in the care of your patient.
[2019-06-24] MEDS: HYDROmorphone 1 MG/ML 1 ML SYRINGE IVP PRN (17:16)
[2019-06-25] MEDS: HYDROmorphone 0.5 MG/0.5 ML SYRINGE IVP PRN ×7 (00:25→22:48)
[2019-06-25] MEDS: SODIUM CHLORIDE 0.9% 1,000 ML IV SCH ×2 (03:24→17:39)
[2019-06-25] MEDS ORDERED: RX INFO: IV CONTRAST WAS GIVEN 1 EACH MISC MISCELLANE PRN (08:01)
--- NOTE | 2019-06-25 08:01 | P.PN ---
Subjective Progress Note Date: 06/25/19 Principal diagnosis: Left-sided recurrent pneumothorax. Previous medical history of left-sided pneumothorax status post thoravent placement in removal approximately week ago, and previous tobacco dependence. The patient's currently sitting up in bed in no acute distress. Denies any pain or shortness of breath. Has been ambulatory in the room without difficulty. Actively using her incentive spirometry. No new concerns. Objective - Vital Signs Vital signs: Vital Signs Temp 98.2 F 06/25/19 00:05 Pulse 58 L 06/25/19 00:05 Resp 14 06/25/19 00:05 BP 129/71 06/25/19 00:05 Pulse Ox 99 06/25/19 00:05 Intake & Output 06/24/19 06/25/19 06/25/19 18:59 06:59 18:59 Intake Total 50 225 Balance 50 225 Weight 61.235 kg Intake: Intake, IV Titration 225 Amount Sodium Chloride 0.9% 1, 225 000 ml @ 75 mls/hr IV . [id number] [facility] Rx#:[id number] Oral 50 - Constitutional General appearance: Present: cooperative, no acute distress - Respiratory Details: Lungs sounds clear bilaterally. Respirations even, nonlabored. Currently on room air with oxygen saturation 99%. Able to achieve 1250 mL on her incentive spirometry. - Cardiovascular Details: S1, S2 present. Regular rate and rhythm, sinus rhythm on telemetry. Palpable peripheral pulses bilaterally. No edema present. No calf pain or tenderness n oted. - Gastrointestinal Gastrointestinal Comment(s): Abdomen soft, nontender, nondistended. Active bowel sounds present 4 quadrants. Tolerating diet. - Genitourinary Genitourinary Comment(s): Continues to void - Integumentary Integumentary Comment(s): Skin is warm and dry with evidence of good perfusion - Neurologic Neurologic: Present: CNII-XII intact - Musculoskeletal Musculoskeletal: Present: gait normal, strength equal bilaterally - Psychiatric Psychiatric: Present: A&O x's 3, appropriate affect, intact judgment & insight - Allied health notes Allied health notes reviewed: nursing - Labs CBC & Chem 7: 06/24/19 13:37 06/24/19 13:37 Labs: Abnormal Lab Results - Last 24 Hours (Table) 06/24/19 06/24/19 06/24/19 Range/Units 13:37 13:37 13:37 Neutrophils # 8.0 H (1.3-7.7) k/uL APTT 19.8 L (22.0-30.0) sec Carbon Dioxide 21 L (22-30) mmol/L Glucose 103 H (74-99) mg/dL - Imaging and Cardiology Chest x-ray: image reviewed Assessment and Plan Assessment: 1. Left-sided pneumothorax 2. Previous tobacco dependence Plan: 1. Plan is for left sided video-assisted thoracoscopy with bleb resection and pleurodesis on June [address] López. 2. Will continue to monitor chest x-rays, will obtain computed tomography scan of the chest to evaluate for blebs 3. Encourage incentive spirometry use 10 times every hour while awake 4. Encourage continued smoking cessation 5. Increase activity, ambulate as tolerated 6. Medical management of other comorbidities per primary care service 7. More recommendations to follow Time with Patient: Greater than 30
--- NOTE | 2019-06-25 08:35 | XR ---
EXAMINATION TYPE: XR chest 2V DATE OF EXAM: 06/25/2019 COMPARISON: 06/24/2019 HISTORY: 33 year-old female left pneumothorax TECHNIQUE: PA and lateral views FINDINGS: Heart normal size. No cardiomediastinal shift. Aorta and pulmonary vasculature is within normal limit s. Redemonstrated left-sided pneumothorax. The apical pleural component is similar at 4.0 cm. Enlargi ng lateral component now extending down to the left base measuring 1.0 cm. Basilar component now also present measuring 6 mm. Anterior component seen on the lateral view. Trace left effusion. IMPRESSION: Slightly enlarging moderate-sized left pneumothorax. Apical component is similar at 4.0 cm but now ne w anterior, lateral, and basilar components are demonstrated. Trace left effusion. No mediastinal patricio ft to suggest tension.
--- NOTE | 2019-06-25 11:01 | CT ---
EXAMINATION TYPE: CT chest w con DATE OF EXAM: 06/25/2019 COMPARISON: Radiograph earlier today HISTORY: 33-year-old female Evaluate Lt sided pneumothorax TECHNIQUE: Contiguous axial scanning of the chest after the administration of 100 mL of Isovue 300. Coronal/sagittal reconstructions performed. CT DLP: 234.6mGycm. Automatic exposure control utilized for a dose reduction. FINDINGS: Heart normal size without pericardial effusion. No cardiomediastinal shift. Aorta normal caliber with bovine configuration to the aortic arch. No thoracic lymphadenopathy by CT size criteria. Moderate-sized left-sided pneumothorax is present. The lung has pulled away from the thoracic wall on all sides except for posteriorly. Estimated at 35%. Small pleural effusion. Some left apical blebs m easure up to 2.2 cm. On the right, additional blebs are present measuring up to 2.0 cm with pleural parenchymal scarring. Tiny hiatal hernia. Visualized upper abdomen otherwise shows no gross abnormality. Bones: No osseous destructive process. IMPRESSION: 1. Left-sided hydropneumothorax with moderate sized pneumothorax estimated at 35%. The lung is pulled away from the thoracic wall on all sides except for posteriorly. Small pleural effusion. 2. Biapical pleural parenchymal scarring and biapical blebs measuring up to 2.2 cm. 3. Tiny hiatal hernia.
--- NOTE | 2019-06-25 12:19 | P.HPIM ---
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 She is a former smoker until last week. She was admitted and had a chest tube to suction. She had significant improvement and a sore event was placed. She was seen outpatient by pulmonology and it was discontinued. She now has a one- day history of pain and discomfort in the left upper chest similar to previous episode. Outpatient x-ray showed a 15% pneumothorax. She was sent to the emergency room yesterday and was found to have ongoing pneumothorax. She is admitted for further treatment. Today she denies any significant chest pains, pressures, or shortness of breath. She denies any nausea or vomiting. She is tolerating regular diet. She complains of some anxiety regarding her health condition. Thoracic surgery consultation is pending Review of Systems All systems: negative Past Medical History Past Medical History: No Reported History Additional Past Medical History / Comment(s): Left-sided spontaneous pneumothorax 06/13/2019 History of Any Multi-Drug Resistant Organisms: None Reported Past Surgical History: No Surgical Hx Reported Additional Past Surgical History / Comment(s): Thoravent placement 06/13/2019 with removal 06/16/2019 Past Psychological History: No Psychological Hx Reported Smoking Status: Former smoker Past Alcohol Use History: Occasional Past Drug Use History: None Reported - Past Family History Mother Family Medical History: No Reported History Father Family Medical History: No Reported History Medications and Allergies Home Medications Medication Instructions Recorded Confirmed Type medroxyPROGESTERone [Depo-Provera] 150 mg IM Q90D 06/13/19 06/24/19 History Allergies Allergy/AdvReac Type Severity Reaction Status Date / Time No Known Allergies Allergy Verified 06/24/19 13:41 Physical Exam Vitals: Vital Signs Temp Pulse Pulse Resp BP BP Pulse Ox 06/25/19 08:55 98.6 F 61 12 126/77 98 06/25/19 00:05 98.2 F 58 L 14 129/71 99 06/24/19 20:00 98.2 F 64 18 120/73 06/24/19 15:18 17 06/24/19 15:05 98.9 F 75 17 124/87 96 06/24/19 14:43 98.6 F 82 18 123/76 98 06/24/19 13:02 98.3 F 92 18 145/86 98 Intake and Output 06/24/19 06/25/19 06/25/19 22:59 06:59 14:59 Intake Total 275 Balance 275 Intake: Intake, IV Titration 225 Amount Sodium Chloride 0.9% 1, 225 000 ml @ 75 mls/hr IV . [id number] [facility] Rx#:[id number] Oral 50 GENERAL: Well-appearing, well-nourished and in no acute distress. HEAD: Atraumatic, normocephalic. EYES: Pupils equal round and reactive to light, extraocular movements intact, sclera anicteric, conjunctiva are normal. ENT:nares patent, oropharynx clear without exudates. Moist mucous membranes. NECK: Normal range of motion, supple without lymphadenopathy or JVD, no thyromegaly LUNGS: Breath sounds clear to auscultation bilaterally with absent breath sounds at the left apex. No wheezes rales or rhonchi. HEART: Regular rate and rhythm without murmurs, rubs or gallops.S1S2 Normal ABDOMEN: Soft, nontender, normoactive bowel sounds. No guarding, no rebound. No masses appreciated. EXTREMITIES: Normal range of motion, no pitting or edema. No clubbing or cyanosis. NEUROLOGICAL: Cranial nerves II through XII grossly intact. Normal speech, normal gait. PSYCH: Normal mood, normal affect. SKIN: Warm, Dry, normal turgor, no rashes or lesions noted. Results CBC & Chem 7: 06/24/19 13:37 06/24/19 13:37 Labs: Abnormal Lab Results - Last 24 Hours (Table) 06/24/19 06/24/19 06/24/19 Range/Units 13:37 13:37 13:37 Neutrophils # 8.0 H (1.3-7.7) k/uL APTT 19.8 L (22.0-30.0) sec Carbon Dioxide 21 L (22-30) mmol/L Glucose 103 H (74-99) mg/dL Thrombosis Risk Factor Assmnt - DVT/VTE Prophylaxis DVT/VTE Prophylaxis: Mechanical Prophylaxis ordered (She will go for surgery on Thursday) - Choose All That Apply Each Risk Factor Represents 3 Points: Family history of DVT/PE Thrombosis Risk Factor Assessment Total Risk Factor Score: 3 Thrombosis Risk Factor Assessment Level: Moderate Risk Assessment and Plan (1) Recurrent spontaneous pneumothorax Current Visit: Yes Status: Acute Code(s): J93.83 - OTHER PNEUMOTHORAX SNOMED Code(s): 87005287 (2) H/O tobacco use, presenting hazards to health Current Visit: Yes Status: Acute Code(s): Z87.891 - PERSONAL HISTORY OF NICOTINE DEPENDENCE SNOMED Code(s): 899417317 Plan: We'll await further recommendations from thoracic surgery. SCDs. Repeat labs in a.m. She'll be reevaluated next 24 hours.
[2019-06-25] MEDS ORDERED: MIDAZOLAM 2 MG/2 ML VIAL IV PRN (15:42)
[2019-06-25] MEDS ORDERED: fentaNYL (PF) 50 MCG/ML 2 ML AMP IV PRN (15:42)
--- NOTE | 2019-06-25 16:54 | CONS ---
CONSULTATION PULMONARY/CRITICAL CARE CONSULTATION: DATE OF SERVICE: 06/25/2019 This is a 33-year-old female who was seen in the emergency room on June 24. She came in for shortness of breath. She was discovered to have a recurrent left-sided pneumothorax. She was recently in the hospital. At that time, she had a Thora-Vent placed. It was removed prior to discharge and unfortunately, she developed a recurrent left-sided pneumothorax. She is admitted to the hospital and will apparently have surgery by one of the cardiothoracic surgeons on Thursday. I suspect they will do a VATS apical bleb resection and mechanical pleurodesis. Looking at her CT scan, her pneumothorax on the left is very obvious and very obvious also on chest x-ray. In addition, looking at the right apex, she has significant cysts and blebs. 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 She also smokes marijuana. Anyway, the patient is scheduled for surgery on Thursday. I believe it is going to be Dr. López. Currently, she is not complaining of much. She does not have much in the way of shortness of breath, chest pain or chest discomfort. The pneumothorax is present on x-rays and CAT scans. There is no fever or chills. There is no nausea, vomiting, diarrhea. No genitourinary complaints. HOME MEDICATIONS: Apparently included Augmentin, Motrin, and she gets Depo-Provera shots 150 mg every 3 months. ALLERGIES: Denied. PAST MEDICAL HISTORY: Positive only for a recent left-sided pneumothorax. 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 Otherwise, no significant past medical history. SURGICAL HISTORY: Only includes a recent left-sided Thora-Vent which was removed prior to discharge. SOCIAL HISTORY: Positive for previous tobacco use. She states she is not going to smoke anymore. She admits to alcohol use occasionally. FAMILY HISTORY: Family history is unremarkable. Both mother and father were healthy. REVIEW OF SYSTEMS: CONSTITUTIONAL: Negative. NEUROLOGIC: Negative. HEENT: Negative. CARDIOVASCULAR: Chest pain, left side. PULMONARY: Shortness of breath and chest discomfort, left side. GI: Negative. : Negative. RHEUMATOLOGIC: Negative. IMMUNOLOGIC: Negative. ENDOCRINOLOGIC: Negative. DERMATOLOGIC: Negative. PHYSICAL EXAMINATION: Current vital signs are reviewed. Her vital signs are stable. Temperature 98.6, heart rate 61, respiratory rate 12, blood pressure 126/77, mean 93, room air saturation 98%. Appears in no acute distress. HEENT examination is grossly unremarkable. Mucous membranes are moist. No oral lesions. NECK: Supple. Full range of motion. No adenopathy. Neck veins are flat. CARDIOVASCULAR examination reveals regular rhythm and rate. Heart rate 60 beats per minute. S1, S2 normal. No S3, S4, or murmur. LUNGS: Reveal relatively clear breath sounds throughout. No wheezes, rhonchi, or crackles. I do not really hear much of a difference between breath sounds on the left and right side. ABDOMEN: Soft. Bowel sounds are heard. EXTREMITIES are intact. No cyanosis, clubbing, or edema. SKIN: Without rash. There is a small puncture wound from the previous Thora-Vent on the left anterior chest area. Otherwise, skin is normal. NEUROLOGIC: Examination is brief but nonfocal. Chest x-ray showed a left-sided pneumothorax. Chest CT shows left-sided pneumothorax and apical blebs and cysts in the right apex. LABS: Reviewed. CBC is normal. PT/INR normal. PTT is 19.8. Sodium, potassium, chloride normal. CO2 21. Anion gap is 11. BUN and creatinine were 8 and 0.59. The rest of the comprehensive metabolic profile is normal. Current medications are reviewed. She is on Benadryl, Dilaudid, Narcan and a basic IV at 75 mL an hour. ASSESSMENT: 1. Recurrent left-sided pneumothorax, status post recent admission with Thora-Vent placement and subsequent removal, with recurrent pneumothorax occurring in anticipated VATS procedure with apical bleb resection and mechanical pleurodesis. 2. Previous history of tobacco use. 3. Right apical blebs and cysts with the possibility of congenital distal acinar emphysema. PLAN: The patient is apparently going to have surgery on Thursday with Dr. López. We will continue to follow. No additional recommendations are made. Prognosis is guarded. She is counseled strongly about the importance of never smoking again. We also recommend no use of marijuana or vaping products. I told her there is a 25-30% chance of a pneumothorax on the opposite side given the fact that she has blebs in the apices there. Additional recommendations and suggestions are forthcoming. ELISHAODL / IJN: [id number] /
[2019-06-25] MEDS: DEXAMETHASONE SOD PHOSPHATE 10 MG/ML 1 ML VIAL IV ONE (17:39)
[2019-06-25] MEDS: LACTATED RINGERS 1,000 ML IV SCH (17:39)
[2019-06-25] MEDS: diphenhydrAMINE 50 MG/ML 1 ML VIAL IVP PRN (21:18)
[2019-06-26] MEDS: HYDROmorphone 0.5 MG/0.5 ML SYRINGE IVP PRN ×5 (01:14→17:17)
[2019-06-26] MEDS: SODIUM CHLORIDE 0.9% 1,000 ML IV SCH ×3 (04:53→20:30)
[2019-06-26 07:59] LABS: Basophils # (A) 0.1 k/uL (0-0.2); Basophils % (A) 1 %; Eosinophils # (A) 0.7 k/uL (0-0.7); Eosinophils % (A) 9 %; HCT 39.3 % (34.0-46.0); HGB 12.8 gm/dL (11.4-16.0); Lymphocytes # (A) 3.2 k/uL (1.0-4.8); Lymphocytes % (A) 42 %; MCH 32.6 pg (25.0-35.0); MCHC 32.6 g/dL (31.0-37.0); MCV 100.1 fL (80.0-100.0); Mean Platelet Volume 7.8; Monocytes # (A) 0.4 k/uL (0-1.0); Monocytes % (A) 5 %; Neutrophils # (A) 3.1 k/uL (1.3-7.7); Neutrophils % (A) 40 %; Platelet Count 374 k/uL (150-450); RBC 3.92 m/uL (3.80-5.40); RDW 12.8 % (11.5-15.5); WBC 7.7 k/uL (3.8-10.6)
[2019-06-26 08:30] LABS: African American GFR (CKD) >90 (>60 ml/min/1.73 sqM); Anion Gap 7 mmol/L; Blood Urea Nitrogen 4 mg/dL (7-17); Calcium 9.4 mg/dL (8.4-10.2); Carbon Dioxide 26 mmol/L (22-30); Chloride 107 mmol/L (98-107); Glucose 87 mg/dL (74-99); Magnesium 1.8 mg/dL (1.6-2.3); Non-African American GFR(CKD) >90 (>60 ml/min/1.73 sqM); Potassium 4.2 mmol/L (3.5-5.1); Sodium 140 mmol/L (137-145)
[2019-06-26] MEDS: diphenhydrAMINE 50 MG/ML 1 ML VIAL IVP PRN ×2 (09:33→21:09)
[2019-06-26] MEDS: LACTATED RINGERS 1,000 ML IV SCH (10:45)
--- NOTE | 2019-06-26 11:49 | P.PN ---
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 She is a former smoker until last week. She was admitted and had a chest tube to suction. She had significant improvement and a sore event was placed. She was seen outpatient by pulmonology and it was discontinued. She now has a one-day history of pain and discomfort in the left upper chest similar to previous episode. Outpatient x-ray showed a 15% pneumothorax. She was sent to the emergency room yesterday and was found to have ongoing pneumothorax. She is admitted for further treatment. Today she denies any significant chest pains, pressures, or shortness of breath. She denies any nausea or vomiting. She is tolerating regular diet. She complains of some anxiety regarding her health condition. Thoracic surgery consultation is pending 06/26/2019: Patient is doing well. She is without complaint today. She denies any chest pains, pressures, shortness of breath. She is been seen by thoracic surgery and they're planning a left-sided video-assisted fluoroscopy with bleb resection and pleurodesis with Dr López. Pulmonology seen her and reviewed her CT chest. It shows blebs in the apices of her other long as well. Objective - Vital Signs Vital signs: Vital Signs Temp 98.6 F 06/26/19 07:13 Pulse 71 06/26/19 07:13 Resp 16 06/26/19 07:13 BP 113/70 06/26/19 07:13 Pulse Ox 98 06/26/19 07:13 Intake & Output 06/25/19 06/26/19 06/26/19 18:59 06:59 18:59 Intake Total 296 1595 655 Balance 296 1595 655 Intake: Intake, IV Titration 875 75 Amount Sodium Chloride 0.9% 1, 875 75 000 ml @ 75 mls/hr IV . [id number] [facility] Rx#:[id number] Oral 296 378 682 Other: Voiding Method Toilet Toilet # Voids 1 3 - Exam GENERAL: Well-appearing, well-nourished and in no acute distress. NECK: Normal range of motion, supple without lymphadenopathy or JVD, no thyromegaly LUNGS: Breath sounds clear to auscultation bilaterally with absent breath sounds at the left apex. No wheezes rales or rhonchi. HEART: Regular rate and rhythm without murmurs, rubs or gallops.S1S2 Normal ABDOMEN: Soft, nontender, normoactive bowel sounds. No guarding, no rebound. No masses appreciated. EXTREMITIES: Normal range of motion, no pitting or edema. No clubbing or cyanosis. NEUROLOGICAL: Cranial nerves II through XII grossly intact. Normal speech, normal gait. PSYCH: Normal mood, normal affect. SKIN: Warm, Dry, normal turgor, no rashes or lesions noted. - Labs CBC & Chem 7: 06/26/19 07:07 06/26/19 07:07 Labs: Abnormal Lab Results - Last 24 Hours (Table) 06/26/19 06/26/19 Range/Units 07:07 07:07 MCV 100.1 H (80.0-100.0) fL BUN 4 L (7-17) mg/dL Assessment and Plan (1) Recurrent spontaneous pneumothorax Current Visit: Yes Status: Acute Code(s): J93.83 - OTHER PNEUMOTHORAX SNOM ED Code(s): 65864886 (2) H/O tobacco use, presenting hazards to health Current Visit: Yes Status: Acute Code(s): Z87.891 - PERSONAL HISTORY OF NICOTINE DEPENDENCE SNOMED Code(s): 851095208 (3) Lung blebs Current Visit: Yes Status: Acute Code(s): J43.9 - EMPHYSEMA, UNSPECIFIED SNOMED Code(s): 747771036 Plan: Awaiting her upcoming VATS procedure with pleurodesis tomorrow. Await further recommendations from thoracic surgery. Wait any further recommendations from pulmonology. Patient was again counseled to not smoke, vapor, or use any other substances in her lungs that is not prescribed. Patient was questioning a trip to [place] scheduled for ThursdayJuly 02. I indicated she'll discuss this with the surgeon, but most likely would not be recommended that she fly or even drive at that time. We'll repeat labs in a.m. We'll reevaluate next 24 hours.
--- NOTE | 2019-06-26 12:25 | P.PN ---
Subjective Progress Note Date: 06/26/19 Principal diagnosis: Recurrent left sided pneumothorax This is a very pleasant 33-year-old female patient we had seen in consultation yesterday. She has a history of her recurrent left-sided pneumothorax with previous Thora-Vent placement and subsequent removal. The plan is for left- sided video-assisted thoracoscopic with bleb resection and pleurodesis tomorrow per CT services. Presently she is resting quite comfortably in bed. Awake and alert in no acute distress. No worsening shortness of breath, cough or congestion. No left-sided chest discomfort. She is maintaining good O2 saturations in the upper 90s on room air. She's afebrile. Hemodynamically stable. White count 7.7. Hemoglobin 12.8. Creatinine 0.62. Objective - Vital Signs Vital signs: Vital Signs Temp 98.6 F 06/26/19 07:13 Pulse 71 06/26/19 07:13 Resp 16 06/26/19 07:13 BP 113/70 06/26/19 07:13 Pulse Ox 98 06/26/19 07:13 Intake & Output 06/25/19 06/26/19 06/26/19 18:59 06:59 18:59 Intake Total 296 1595 655 Balance 296 1595 655 Intake: Intake, IV Titration 875 75 Amount Sodium Chloride 0.9% 1, 875 75 000 ml @ 75 mls/hr IV . [id number] [facility] Rx#:[id number] Oral 296 720 580 Other: Voiding Method Toilet Toilet # Voids 1 3 - Exam GENERAL EXAM: Alert, active, comfortable 33-year-old female patient, on room air, in no apparent distress. HEAD: Normocephalic. EYES: Normal reaction of pupils, equal size. NOSE: Clear with pink turbinates. THROAT: No erythema or exudates. NECK: No masses, no JVD. CHEST: No chest wall deformity. LUNGS: Equal air entry with diminished breath sounds mainly in the left lung. CVS: S1 and S2 normal with no audible murmur, regular rhythm. ABDOMEN: No hepatosplenomegaly, normal bowel sounds, no guarding or rigidity. SPINE: No scoliosis or deformity SKIN: No rashes CENTRAL NERVOUS SYSTEM: No focal deficits, tone is normal in all 4 extremities. EXTREMITIES: There is no peripheral edema. No clubbing, no cyanosis. Peripheral pulses are intact. - Labs CBC & Chem 7: 06/26/19 07:07 06/26/19 07:07 Labs: Abnormal Lab Results - Last 24 Hours (Table) 06/26/19 06/26/19 Range/Units 07:07 07:07 MCV 100.1 H (80.0-100.0) fL BUN 4 L (7-17) mg/dL Assessment and Plan Assessment: 1 Recurrent left-sided pneumothorax with previous Thora-Vent placement and subsequent removal. The plan is for video assisted thoracoscopic bleb resection and pleurodesis on 06/27/2019. 2 Chronic and ongoing tobacco dependence 3 Right apical blebs emesis with the possibility of congenital distal acinar emphysema Plan: The patient was seen and evaluated by Dr. Barnard. She is currently stable from the pulmonary standpoint. Plan is for surgery tomorrow. She is again educated regarding the importance of complete smoking cessation and avoidance of the being and marijuana use as well. We will continue to follow her in the postoperative period. We will make further recommendations based on her clinical status. I, the cosigning physician, performed a history & physical examination of the patient. Lungs sounds diminished in the left lung. Maintaining good O2 saturations in the 90s on room air. I discussed the assessment and plan of care with my nurse practitioner, Vilma Payan. I attest to the above note as dictated by her.
--- NOTE | 2019-06-26 14:08 | P.PN ---
Subjective Progress Note Date: 06/26/19 Principal diagnosis: Left-sided recurrent pneumothorax. Previous medical history of left-sided pneumothorax status post thoravent placement in removal approximately week ago, and previous tobacco dependence. The patient's currently laying in bed in no acute distress. Denies any pain or shortness of breath. Has been ambulatory in the hallway without difficulty. Actively using her incentive spirometry. No new concerns. Objective - Vital Signs Vital signs: Vital Signs Temp 98.6 F 06/26/19 07:13 Pulse 71 06/26/19 07:13 Resp 16 06/26/19 07:13 BP 113/70 06/26/19 07:13 Pulse Ox 98 06/26/19 07:13 Intake & Output 06/25/19 06/26/19 06/26/19 18:59 06:59 18:59 Intake Total 296 1595 1345 Balance 296 1595 1345 Intake: Intake, IV Titration 875 225 Amount Sodium Chloride 0.9% 1, 875 225 000 ml @ 75 mls/hr IV . [id number] [facility] Rx#:[id number] Oral 160 514 [id number] Other: Voiding Method Toilet Toilet # Voids 1 3 1 - Constitutional General appearance: Present: cooperative, no acute distress - Respiratory Details: Lungs sounds clear bilaterally. Respirations even, nonlabored. Currently on room air with oxygen saturation 98%. Able to achieve 1500 mL on her incentive spirometry. - Cardiovascular Details: S1, S2 present. Regular rate and rhythm, sinus rhythm on telemetry. Palpable peripheral pulses bilaterally. No edema present. No calf pain or tenderness noted. - Gastrointestinal Gastrointestinal Comment(s): Abdomen soft, nontender, nondistended. Active bowel sounds present 4 quadrants. Tolerating diet. - Genitourinary Genitourinary Comment(s): Continues to void - Integumentary Integumentary Comment(s): Skin is warm and dry with evidence of good perfusion - Neurologic Neurologic: Present: CNII-XII intact - Musculoskeletal Musculoskeletal: Present: gait normal, strength equal bilaterally - Psychiatric Psychiatric: Present: A&O x's 3, appropriate affect, intact judgment & insight - Allied health notes Allied health notes reviewed: nursing - Labs CBC & Chem 7: 06/26/19 07:07 06/26/19 07:07 Labs: Abnormal Lab Results - Last 24 Hours (Table) 06/26/19 06/26/19 Range/Units 07:07 07:07 MCV 100.1 H (80.0-100.0) fL BUN 4 L (7-17) mg/dL - Imaging and Cardiology CT scan - chest: report reviewed, image reviewed Assessment and Plan Assessment: 1. Left-sided pneumothorax 2. Previous tobacco dependence Plan: 1. Plan is for left sided video-assisted thoracoscopy with bleb resection and pleurodesis on June [address] López. NPO after midnight 2. Will continue to monitor chest x-rays 3. Encourage incentive spirometry use 10 times every hour while awake 4. Encourage continued smoking cessation 5. Increase activity, ambulate as tolerated 6. Medical management of other comorbidities per primary care service 7. More recommendations to follow Time with Patient: Greater than 30
[2019-06-26] MEDS: HYDROmorphone 1 MG/ML 1 ML SYRINGE IVP PRN ×2 (20:31→23:58)
[2019-06-27] MEDS: HYDROmorphone 1 MG/ML 1 ML SYRINGE IVP PRN (03:10)
[2019-06-27] MEDS: HYDROmorphone 0.5 MG/0.5 ML SYRINGE IVP PRN ×2 (07:40→20:06)
[2019-06-27 07:47] LABS: African American GFR (CKD) >90 (>60 ml/min/1.73 sqM); Anion Gap 8 mmol/L; Blood Urea Nitrogen 6 mg/dL (7-17); Calcium 9.3 mg/dL (8.4-10.2); Carbon Dioxide 22 mmol/L (22-30); Chloride 110 mmol/L (98-107); Glucose 84 mg/dL (74-99); Non-African American GFR(CKD) >90 (>60 ml/min/1.73 sqM); Potassium 4.1 mmol/L (3.5-5.1); Sodium 140 mmol/L (137-145)
--- NOTE | 2019-06-27 07:47 | P.PN ---
Subjective Progress Note Date: 06/27/19 Principal diagnosis: Left-sided pneumothorax. Previous medical history of left-sided pneumothorax status post thoravent placement and removal approximately week ago, and previous tobacco dependence. The patient's currently laying in bed in no acute distress. Denies any shortne ss of breath, does complain of occasional left shoulder discomfort, asking for Dilaudid every 3-4 hours. Has been ambulatory in the hallway without difficulty. Actively using her incentive spirometry. No new concerns. Anticipating surgery today with Dr. López Objective - Vital Signs Vital signs: Vital Signs Temp 98.4 F 06/27/19 01:20 Pulse 67 06/27/19 01:20 Resp 18 06/27/19 01:20 BP 96/61 06/27/19 01:20 Pulse Ox 97 06/27/19 01:20 Intake & Output 06/26/19 06/27/19 06/27/19 18:59 06:59 18:59 Intake Total 1345 870 Balance 1345 870 Intake: Intake, IV Titration 225 150 Amount Sodium Chloride 0.9% 1, 225 150 000 ml @ 75 mls/hr IV . [id number] [facility] Rx#:[id number] Oral 1120 720 Other: Voiding Method Toilet Toilet # Voids 1 1 - Constitutional General appearance: Present: cooperative, no acute distress - Respiratory Details: Lungs sounds clear bilaterally. Respirations even, nonlabored. Currently on room air with oxygen saturation 97%. Able to achieve 1500 mL on her incentive spirometry. - Cardiovascular Details: S1, S2 present. Regular rate and rhythm, sinus rhythm on telemetry. Palpable peripheral pulses bilaterally. No edema present. No calf pain or tenderness noted. - Gastrointestinal Gastrointestinal Comment(s): Abdomen soft, nontender, nondistended. Active bowel sounds present 4 quadrants. Tolerating diet. - Genitourinary Genitourinary Comment(s): Continues to void - Integumentary Integumentary Comment(s): Skin is warm and dry with evidence of good perfusion - Neurologic Neurologic: Present: CNII-XII intact - Musculoskeletal Musculoskeletal: Present: gait normal, strength equal bilaterally - Psychiatric Psychiatric: Present: A&O x's 3, appropriate affect, intact judgment & insight - Allied health notes Allied health notes reviewed: nursing - Labs CBC & Chem 7: 06/26/19 07:07 06/26/19 07:07 Labs: Abnormal Lab Results - Last 24 Hours (Table) 06/26/19 06/26/19 Range/Units 07:07 07:07 MCV 100.1 H (80.0-100.0) fL BUN 4 L (7-17) mg/dL Assessment and Plan Assessment: 1. Left-sided pneumothorax, S/P previous Thoravent placement 2. Previous tobacco dependence Plan: 1. Plan is for left sided video-assisted thoracoscopy with bleb resection and pleurodesis today with Dr. López. 2. Will continue to monitor chest x-rays 3. Encourage incentive spirometry use 10 times every hour while awake 4. Encourage continued smoking cessation 5. Increase activity, ambulate as tolerated 6. Toradol added for pain control, recommend decrease narcotic usage 7. Medical management of other comorbidities per primary care service 8. More recommendations to follow Time with Patient: Greater than 30
[2019-06-27] MEDS: LACTATED RINGERS 1,000 ML IV SCH ×2 (12:14→14:38)
--- NOTE | 2019-06-27 12:24 | P.PN ---
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 She is a former smoker until last week. She was admitted and had a chest tube to suction. She had significant improvement and a sore event was placed. She was seen outpatient by pulmonology and it was discontinued. She now has a one-day history of pain and discomfort in the left upper chest similar to previous episode. Outpatient x-ray showed a 15% pneumothorax. She was sent to the emergency room yesterday and was found to have ongoing pneumothorax. She is admitted for further treatment. Today she denies any significant chest pains, pressures, or shortness of breath. She denies any nausea or vomiting. She is tolerating regular diet. She complains of some anxiety regarding her health condition. Thoracic surgery consultation is pending 06/26/2019: Patient is doing well. She is without complaint today. She denies any chest pains, pressures, shortness of breath. She is been seen by thoracic surgery and they're planning a left-sided video-assisted fluoroscopy with bleb resection and pleurodesis with Dr López. Pulmonology seen her and reviewed her CT chest. It shows blebs in the apices of her other long as well. 06/27/2019 NPO, Scheduled for VATS/pleurodesis today with cardiothoracic surgery.VSS. Maintaining O2 sats in the high 90s on room air . Incentive spirometer up to 1500.Telemetry sinus rhythm. Objective - Vital Signs Vital signs: Vital Signs Temp 98.5 F 06/27/19 08:22 Pulse 65 06/27/19 08:22 Resp 16 06/27/19 08:22 BP 100/61 06/27/19 08:22 Pulse Ox 96 06/27/19 08:22 Intake & Output 06/26/19 06/27/19 06/27/19 18:59 06:59 18:59 Intake Total 1345 870 Balance 1345 870 Intake: Intake, IV Titration 225 150 Amount Sodium Chloride 0.9% 1, 225 150 000 ml @ 75 mls/hr IV . [id number] SOILA Rx#:[id number] Oral 1120 720 Other: Voiding Method Toilet Toilet Toilet # Voids 1 1 - Exam GENERAL: Sitting up in bed, no acute distress NECK: Normal range of motion, supple without lymphadenopathy or JVD, no thyromegaly LUNGS: Breath sounds clear to auscultation bilaterally with absent breath sounds at the left apex. No wheezes rales or rhonchi. HEART: Regular rate and rhythm without murmurs, rubs or gallops.S1S2 Normal ABDOMEN: Soft, nontender, normoactive bowel sounds. No guarding, no rebound. No masses appreciated. EXTREMITIES: Normal range of motion, no pitting or edema. No clubbing or cyanosis. NEUROLOGICAL: Cranial nerves II through XII grossly intact. Normal speech, normal gait. PSYCH: Normal mood, normal affect. SKIN: Warm, Dry, normal turgor, no rashes or lesions noted. - Labs CBC & Chem 7: 06/26/19 07:07 06/27/19 06:57 Labs: Abnormal Lab Results - Last 24 Hours (Table) 06/27/19 Range/Units 06:57 Chloride 110 H (98-107) mmol/L BUN 6 L (7-17) mg/dL Assessment and Plan Assessment: (1) Recurrent spontaneous pneumothorax Current Visit: Yes Status: Acute Code(s): J93.83 - OTHER PNEUMOTHORAX SNOMED Code(s): 13868335 (2) H/O tobacco use, presenting hazards to health Current Visit: Yes Status: Acute Code(s): Z87.891 - PERSONAL HISTORY OF NICOTINE DEPENDENCE SNOMED Code(s): 648333476 (3) Lung blebs Current Visit: Yes Status: Acute Code(s): J43.9 - EMPHYSEMA, UNSPECIFIED SNOMED Code(s): 591017372 Plan: Continue on current medication regime ,monitoring and symptomatic treatment. Awaiting VATS procedure with pleurodesis today. Follow closely with both pulmonary and cardiothoracic surgery. Aggressive pulmonary toileting with incentive spirometer reinforced. Pain management. The impression and plan of care has been dictated as directed. : I performed a history and examination of this patient, discussed the same with the dictator. I agree with the dictator's note ,documented as a scribe. Any additional findings or plans will be noted.
[2019-06-27] MEDS: KETOROLAC 30 MG/ML 1 ML VIAL IVP SCH ×2 (12:54→17:58)
[2019-06-27] MEDS ORDERED: GLYCOPYRROLATE 0.2 MG/ML 2 ML VIAL ONE (13:52)
[2019-06-27] MEDS ORDERED: MIDAZOLAM 2 MG/2 ML VIAL ONE (13:52)
[2019-06-27] MEDS ORDERED: NEOSTIGMINE 1 MG/ML 10 ML VIAL ONE (13:52)
[2019-06-27] MEDS ORDERED: LIDOCAINE 1% INJ 10MG/ML (20 ML MDV) ONE (13:52)
[2019-06-27] MEDS ORDERED: ROCURONIUM BROMIDE 10 MG/ML 10 ML VIAL IV ONE (13:52)
[2019-06-27] MEDS ORDERED: PROPOFOL 10 MG/ML 20 ML VIAL IV ONE (13:52)
[2019-06-27] MEDS ORDERED: MEPERIDINE 50 MG/ML SYRINGE ONE (13:52)
[2019-06-27] MEDS ORDERED: SUCCINYLCHOLINE CHLORIDE 100 MG/5 ML SYR IV ONE (13:52)
[2019-06-27] MEDS ORDERED: ONDANSETRON 4 MG/2 ML VIAL ONE (13:52)
[2019-06-27] MEDS ORDERED: fentaNYL (PF) 50 MCG/ML 2 ML AMP ONE (13:52)
[2019-06-27] MEDS ORDERED: DEXAMETHASONE SOD PHOS (MDV) 100 MG/10 ML VIAL ONE (13:52)
--- NOTE | 2019-06-27 14:20 | P.PN ---
Subjective Progress Note Date: 06/27/19 's evaluation of 06/27/2019, the patient was taken preoperatively. He denies having any significant shortness of breath. The patient was emanating in the hallway. He was supposed to go to surgery at a later stage by cardiothoracic surgery. He is pulse oxing 98% on room air. His CAT scan of the chest that was done on 06/25/2019 showed left-sided hydroma pneumothorax with moderate left sized pneumothorax established to be around 35%. There was also biapical pleural scarring and biapical pleural blebs measuring up to 2.2 cm in size and the time a hiatal hernia. No other issues for now. Objective - Vital Signs Vital signs: Vital Signs Temp 98.7 F 06/27/19 12:24 Pulse 78 06/27/19 12:24 Resp 16 06/27/19 12:24 BP 137/83 06/27/19 12:24 Pulse Ox 98 06/27/19 12:24 Intake & Output 06/26/19 06/27/19 06/27/19 18:59 06:59 18:59 Intake Total 1345 870 500 Balance 1345 870 500 Intake: IV 500 Intake, IV Titration 225 150 Amount Sodium Chloride 0.9% 1, 225 150 000 ml @ 75 mls/hr IV . [id number] SOILA Rx#:[id number] Oral 1120 720 Other: Voiding Method Toilet Toilet Toilet # Voids 1 1 - Exam GENERAL EXAM: Alert, active, comfortable 33-year-old female patient, on room air, in no apparent distress. HEAD: Normocephalic. EYES: Normal reaction of pupils, equal size. NOSE: Clear with pink turbinates. THROAT: No erythema or exudates. NECK: No masses, no JVD. CHEST: No chest wall deformity. LUNGS: Equal air entry with diminished breath sounds mainly in the left lung. CVS: S1 and S2 normal with no audible murmur, regular rhythm. ABDOMEN: No hepatosplenomegaly, normal bowel sounds, no guarding or rigidity. SPINE: No scoliosis or deformity SKIN: No rashes CENTRAL NERVOUS SYSTEM: No focal deficits, tone is normal in all 4 extremities. EXTREMITIES: There is no peripheral edema. No clubbing, no cyanosis. Peripheral pulses are intact. - Labs CBC & Chem 7: 06/26/19 07:07 06/27/19 06:57 Labs: Abnormal Lab Results - Last 24 Hours (Table) 06/27/19 Range/Units 06:57 Chloride 110 H (98-107) mmol/L BUN 6 L (7-17) mg/dL Assessment and Plan Plan: 1 Recurrent left-sided pneumothorax with previous Thora-Vent placement and subsequent removal. The plan is for video assisted thoracoscopic bleb resection and pleurodesis on 06/27/2019. 2 Chronic and ongoing tobacco dependence 3 Right apical blebs with the possibility of congenital distal acinar emphysema Plan Proceed with a video-assisted thoracoscopic evaluation and thoracoscopic apical bleb resection/bullectomy and possible pleurodesis. This will be done this afternoon. We'll continue to follow up this patient. Daily chest x-ray. Incentive spirometer. Pain control. We'll follow.
[2019-06-27] MEDS ORDERED: BUPIVACAINE (PF) 0.5% 30 ML VIAL SQ ONE (14:38)
[2019-06-27] MEDS ORDERED: LACTATED RINGERS 1,000 ML IV ONE (15:04)
[2019-06-27] MEDS ORDERED: BUPIVACAINE (PF) 0.25% 30 ML VIAL SQ ONE ×2 (15:07→15:19)
[2019-06-27] MEDS ORDERED: ONDANSETRON 4 MG/2 ML VIAL IVP PRN (15:36)
[2019-06-27] MEDS ORDERED: ACETAMINOPHEN TAB 500 MG TAB PO PRN (15:36)
[2019-06-27] MEDS ORDERED: IPRATROPIUM-ALBUTEROL 3 ML NEB IH PRN (15:36)
[2019-06-27] MEDS ORDERED: HYDROmorphone 1 MG/ML 1 ML SYRINGE IVP ONE ×2 (15:45→16:07)
[2019-06-27] MEDS ORDERED: MEPERIDINE 50 MG/ML SYRINGE IVP ONE (16:06)
[2019-06-27] MEDS: IPRATROPIUM-ALBUTEROL 3 ML NEB IH SCH ×2 (16:29→19:29)
--- NOTE | 2019-06-27 16:34 | XR ---
EXAMINATION TYPE: XR chest 1V portable DATE OF EXAM: 06/27/2019 Comparison: 06/25/2019 Clinical History: 33-year-old female S/P VATS Findings: Heart normal size. Aortopulmonary vasculature within normal limits. Left apical chest tube is present . Trace left apical pneumothorax measuring 1 cm versus 4.0 cm, previously. The lung has reexpanded at the periphery and base. Some surgical material is present in the left apex. Impression: Residual trace left apical pneumothorax measuring 1 cm. Chest tube in place.
[2019-06-27 16:58] LABS: Glucose,Whole Blood 99 mg/dL (75-99)
[2019-06-27] MEDS: traMADol 50 MG TAB PO PRN ×2 (17:09→23:11)
[2019-06-27] MEDS: HEPARIN SODIUM,PORCINE 5,000 UNIT/ML 1 ML VIAL SQ SCH (17:10)
--- NOTE | 2019-06-27 20:42 | OP ---
OPERATIVE REPORT DATE OF THE SURGERY: 06/27/2019. SURGEON: Dr. Marley López. ANESTHESIA: Dr. Mitchell. General double-lumen endotracheal. PREOPERATIVE DIAGNOSIS: Recurrent left-sided spontaneous pneumothorax. POSTOPERATIVE DIAGNOSES: Recurrent left-sided spontaneous pneumothorax with presence of apical blebs. PROCEDURE PERFORMED: 1. Fiberoptic bronchoscopy. 2. Left video-assisted thoracoscopic wedge resection of the lung apex including the blebs with mechanical pleurodesis. INDICATION FOR SURGERY: The patient is a 33-year-old lady who had a recurrence of a left-sided spontaneous pneumothorax within 2 weeks and was offered definitive surgical procedure. CT scan showed bilateral apical blebs. The risks, benefits, and alternatives were discussed with her. She understood and agreed to proceed. DESCRIPTION OF THE PROCEDURE: The patient initially in supine position. General double-lumen endotracheal intubation was induced uneventfully. Sequential compression stockings were placed to both lower extremities. The patient was subsequently placed in right lateral decubitus position. After double checking the position of the double-lumen ET tube with a fiberoptic bronchoscopy. All pressure points were supported and axillary roll was used. Final fiberoptic bronchoscopy confirmed adequate tube position. The left lung was isolated. The chest was prepped and draped using ChloraPrep. Ioban was used to cover the skin. We entered the chest through the 7th intercostal space mid axillary line and placed a 10 mm scope through a 10.5 mm port. Exploration revealed mild amount of serosanguineous fluid in the chest. Testing under saline confirmed a leak that mainly in the apical area. Two working incision, 1 anterior 5th intercostal space and 1 posterior at the same space around 1.5 cm each were made and carried down under camera control into the chest. The apical blebs along with the area of leaks were identified and we proceeded at firing multiple purple load DEANNA staplers across the apex of the lung including the blebs. The staple line was hemostatic. Testing of the staple line under water showed no leak. The same was also for the rest of the lung parenchyma including the superior segment of the lower lobe. Once we were satisfied with that, I took a Bovie pad and proceeded at rubbing the pleura mainly in the upper half of the chest, created some weepy surfaces. Subsequently, the camera was moved to the anterior port and a [place] chest tube was placed into the apex and an extra hole was made in the basilar part of it. The lung was expanded under vision after ensuring no bleeding from the ports. The incisions were closed using Vicryl 2-0 for the fascia, Vicryl 3-0 for the subcutaneous tissue and Vicryl 4-0 for the skin in subcuticular manner. The chest tube was affixed to the skin with an Ethibond 0-suture. The patient was extubated on the table and tolerated the procedure well. There was no air leak noted in the Pleur-evac at the end of procedure. MMODL / IJN: [id number] /
[2019-06-27] MEDS: diphenhydrAMINE 50 MG/ML 1 ML VIAL IVP PRN (20:53)
[2019-06-28] MEDS: HEPARIN SODIUM,PORCINE 5,000 UNIT/ML 1 ML VIAL SQ SCH ×3 (00:05→14:43)
[2019-06-28] MEDS: SODIUM CHLORIDE 0.9% 1,000 ML IV SCH (00:05)
[2019-06-28] MEDS: KETOROLAC 30 MG/ML 1 ML VIAL IVP SCH ×3 (00:06→14:42)
[2019-06-28] MEDS: HYDROmorphone 0.5 MG/0.5 ML SYRINGE IVP PRN ×2 (00:13→04:08)
[2019-06-28 05:15] LABS: Basophils % (A) 0 %; Eosinophils # (A) 0.1 k/uL (0-0.7); Eosinophils % (A) 1 %; HCT 34.4 % (34.0-46.0); HGB 11.5 gm/dL (11.4-16.0); Lymphocytes # (A) 1.4 k/uL (1.0-4.8); Lymphocytes % (A) 15 %; MCH 32.7 pg (25.0-35.0); MCHC 33.4 g/dL (31.0-37.0); MCV 98.1 fL (80.0-100.0); Mean Platelet Volume 7.7; Monocytes # (A) 0.5 k/uL (0-1.0); Monocytes % (A) 5 %; Neutrophils # (A) 7.4 k/uL (1.3-7.7); Neutrophils % (A) 78 %; Platelet Count 331 k/uL (150-450); RDW 12.7 % (11.5-15.5); WBC 9.5 k/uL (3.8-10.6)
[2019-06-28 05:23] LABS: African American GFR (CKD) >90 (>60 ml/min/1.73 sqM); Anion Gap 8 mmol/L; Blood Urea Nitrogen 5 mg/dL (7-17); Carbon Dioxide 22 mmol/L (22-30); Chloride 107 mmol/L (98-107); Glucose 125 mg/dL (74-99); Non-African American GFR(CKD) >90 (>60 ml/min/1.73 sqM); Potassium 4.1 mmol/L (3.5-5.1); Sodium 137 mmol/L (137-145)
[2019-06-28] MEDS: traMADol 50 MG TAB PO PRN (06:01)
[2019-06-28] MEDS ORDERED: HYDROcodone/APAP 5-325MG 1 EACH TAB PO PRN ×2 (07:18)
[2019-06-28] MEDS ORDERED: HYDROmorphone 0.5 MG/0.5 ML SYRINGE IVP PRN (07:18)
[2019-06-28] MEDS ORDERED: PANTOPRAZOLE 40 MG TABLET PO SCH (07:30)
[2019-06-28] MEDS: IPRATROPIUM-ALBUTEROL 3 ML NEB IH SCH ×2 (08:04→12:03)
--- NOTE | 2019-06-28 08:04 | P.PN ---
Subjective Progress Note Date: 06/28/19 Principal diagnosis: Recurrent left-sided spontaneous pneumothorax with presence of apical blebs. Previous medical history of left-sided pneumothorax status post thoravent placement and removal approximately week ago, and previous tobacco dependence. POD #1 fiberoptic bronchoscopy, left video-assisted thoracoscopic wedge resection of the lung apex including blebs with mechanical pleurodesis The patient is currently laying in bed in no acute distress. Does complain of surgical type incisional pain, denies shortness of breath. Has been ambulatory to the bathroom with assistance. Left pleural chest tube remains to continuous wall suction without any evidence of air leak. No new complaints. Objective - Vital Signs Vital signs: Vital Signs Temp 98.7 F 06/28/19 04:00 Pulse 67 06/28/19 04:00 Resp 18 06/28/19 04:00 BP 106/66 06/28/19 04:00 Pulse Ox 97 06/28/19 04:00 Intake & Output 06/27/19 06/28/19 06/28/19 18:59 06:59 18:59 Intake Total 1150 965 Output Total 15 770 Balance 1135 195 Weight 64 kg Intake: IV 1150 375 Sodium Chloride 0.9% 1, 375 000 ml @ 75 mls/hr IV . [id number] SOILA Rx#:[id number] Intake, IV Titration 350 Amount Sodium Chloride 0.9% 1, 300 000 ml @ 75 mls/hr IV . [id number] SOIL[facility] Rx#:[id number] ceFAZolin 2 gm In Sodium 50 Chloride 0.9% 50 ml @ 100 mls/hr IVPB Q8H SOILA Rx#: [id number] Oral 240 Output: Chest Tube Drainage 70 Chest Tube Left 70 Urine 700 Estimated Blood Loss 15 Other: Voiding Method Bedpan Toilet # Voids 1 - Constitutional General appearance: Present: cooperative, no acute distress - Respiratory Details: Lungs sounds clear bilaterally. Respirations even, nonlabored. Currently on r oom air with oxygen saturation 97%. Able to achieve 1000 mL on her incentive spirometry. Left pleural chest tube to continuous wall suction, 30 mL serous drainage overnight, 140 mL since surgery, no air leak present, positive tidaling. - Cardiovascular Details: S1, S2 present. Regular rate and rhythm, sinus rhythm on telemetry. Palpable peripheral pulses bilaterally. No edema present. No calf pain or tenderness noted. SCDs present - Gastrointestinal Gastrointestinal Comment(s): Abdomen soft, nontender, nondistended. Active bowel sounds present 4 quadrants. Tolerating diet. - Genitourinary Genitourinary Comment(s): Continues to void - Integumentary Integumentary Comment(s): Skin is warm and dry with evidence of good perfusion. Left lateral chest tube incision covered with dry intact dressing - Neurologic Neurologic: Present: CNII-XII intact - Musculoskeletal Musculoskeletal: Present: gait normal, strength equal bilaterally - Psychiatric Psychiatric: Present: A&O x's 3, appropriate affect, intact judgment & insight - Allied health notes Allied health notes reviewed: nursing - Labs CBC & Chem 7: 06/28/19 04:51 06/28/19 04:51 Labs: Abnormal Lab Results - Last 24 Hours (Table) 06/28/19 06/28/19 Range/Units 04:51 04:51 RBC 3.50 L (3.80-5.40) m/uL BUN 5 L (7-17) mg/dL Creatinine 0.49 L (0.52-1.04) mg/dL Glucose 125 H (74-99) mg/dL - Imaging and Cardiology Chest x-ray: image reviewed Assessment and Plan Assessment: 1. Recurrent left-sided spontaneous pneumothorax, S/P previous Thoravent placement, status post bronchoscopy and VATS with bleb resection, mechanical pleurodesis 2. Previous tobacco dependence Plan: 1. Left pleural chest tube clamped. Will unclamp in 2 hours, if no air leak will discontinue chest tube and repeat CXR. 2. Will continue to monitor chest x-rays 3. Encourage incentive spirometry use 10 times every hour while awake 4. Encourage continued smoking cessation 5. Increase activity, ambulate as tolerated 6. Pain control with current medication regimen. Recommend decreasing Dilaudid usage, discontinued tramadol, switched to [place] for pain control 7. GI/DVT prophylaxis 8. Medical management of other comorbidities per primary care service 9. More recommendations to follow Time with Patient: Greater than 30
--- NOTE | 2019-06-28 08:33 | XR ---
EXAMINATION TYPE: XR chest 1V DATE OF EXAM: 06/28/2019 COMPARISON: 06/27/2019 HISTORY: Status post VATS TECHNIQUE: Single frontal view of the chest is obtained. FINDINGS: Left-sided chest tube seen with approximately 5% left apical pneumothorax. No overt failur e. No pleural effusion or consolidation. Heart size stable. IMPRESSION: 1. Stable 5% left apical pneumothorax
--- NOTE | 2019-06-28 09:32 | P.PN ---
Subjective Progress Note Date: 06/28/19 On 06/28/2019 and seeing the patient for a follow-up. She is doing extremely well. She is postop day #1. She underwent a video-assisted thoracoscopic wedge resection of the lung apex with mechanical pleurodesis. She has done extremely well. The follow-up chest x-ray from today shows no evidence of any pneumothorax. The left lung as well expanded and there is no evidence of any air leak on today's evaluation. She is using incentive spirometer. No respiratory distress. No chest pain. Her oxygen level is 97% on room air Objective - Vital Signs Vital signs: Vital Signs Temp 98.7 F 06/28/19 04:00 Pulse 74 06/28/19 08:16 Resp 18 06/28/19 04:00 BP 106/66 06/28/19 04:00 Pulse Ox 97 06/28/19 04:00 Intake & Output 06/27/19 06/28/19 06/28/19 18:59 06:59 18:59 Intake Total 1150 965 Output Total 15 770 Balance 1135 195 Weight 64 kg Intake: IV 1150 375 Sodium Chloride 0.9% 1, 375 000 ml @ 75 mls/hr IV . [id number] SOIL[facility] Rx#:[id number] Intake, IV Titration 350 Amount Sodium Chloride 0.9% 1, 300 000 ml @ 75 mls/hr IV . [id number] SOIL[facility] Rx#:[id number] ceFAZolin 2 gm In Sodium 50 Chloride 0.9% 50 ml @ 100 mls/hr IVPB Q8H SOILA Rx#: [id number] Oral 240 Output: Chest Tube Drainage 70 Chest Tube Left 70 Urine 700 Estimated Blood Loss 15 Other: Voiding Method Bedpan Toilet # Voids 1 - Exam - Constitutional General appearance: Present: cooperative, no acute distress - Respiratory Details: Lungs sounds clear bilaterally. Respirations even, nonlabored. Currently on room air with oxygen saturation 97%. Able to achieve 1000 mL on her incentive spirometry. Left pleural chest tube to continuous wall suction, 30 mL serous drainage overnight, 140 mL since surgery, no air leak present, positive tidaling. - Cardiovascular Details: S1, S2 present. Regular rate and rhythm, sinus rhythm on telemetry. Palpable peripheral pulses bilaterally. No edema present. No calf pain or tenderness noted. SCDs present - Gastrointestinal Gastrointestinal Comment(s): Abdomen soft, nontender, nondistended. Active bowel sounds present 4 quadrants. Tolerating diet. - Genitourinary Genitourinary Comment(s): Continues to void - Integumentary Integumentary Comment(s): Skin is warm and dry with evidence of good perfusion. Left lateral chest tube incision covered with dry intact dressing - Neurologic Neurologic: Present: CNII-XII intact - Musculoskeletal Musculoskeletal: Present: gait normal, strength equal bilaterally - Psychiatric Psychiatric: Present: A&O x's 3, appropriate affect, intact judgment & insight - Labs CBC & Chem 7: 06/28/19 04:51 06/28/19 04:51 Labs: Abnormal Lab Results - Last 24 Hours (Table) 06/28/19 06/28/19 Range/Units 04:51 04:51 RBC 3.50 L (3.80-5.40) m/uL BUN 5 L (7-17) mg/dL Creatinine 0.49 L (0.52-1.04) mg/dL Glucose 125 H (74-99) mg/dL Assessment and Plan Plan: 1 Recurrent left-sided pneumothorax , and the patient is postop day #1 from a v ideo-assisted thoracoscopic left apical wedge resection of pleural blebs and the patient has a chest tube in place with excellent reexpansion of the left lung without evidence of any air leak. 2 Chronic and ongoing tobacco dependence 3 Right apical blebs with the possibility of congenital distal acinar emphysema Plan The patient is doing extremely well. The left lung is well expanded. She was clamped for now. We'll repeat a chest x-ray. Possibly remove the chest tube today if the left lung remains well expanded. Continue using incentive spirometer. Ambulate in the hallway. Excellent pain control. No other significant issues for now. We'll continue to follow.
[2019-06-28 12:04] VITALS: RESP 16
[2019-06-28] MEDS: DEXAMETHASONE SOD PHOSPHATE 10 MG/ML 1 ML VIAL IV ONE (12:09)
[2019-06-28 13:03] VITALS: BP 158/94; PULSE 81; TEMP 98
--- NOTE | 2019-06-28 13:37 | XR ---
EXAMINATION TYPE: XR chest 2V DATE OF EXAM: 06/28/2019 COMPARISON: 06/28/2019 TECHNIQUE: PA and lateral views submitted. HISTORY: Post VATS FINDINGS: Left-sided chest tube is been removed. There is a less than 5% left apical pneumothorax. Biapical ple ural thickening noted. Heart size normal no overt failure or pleural effusion. IMPRESSION: 1. Chest tube removal with less than 5% left apical pneumothorax.
--- NOTE | 2019-06-28 13:56 | P.DS ---
Providers Date of admission: 06/26/19 13:18 Expected date of discharge: 06/28/19 Attending physician: Shen Jacobo Consults: 06/24/19 13:35 Consult Physician Urgent Consulting Provider: Boogie Brunner Consult Reason/Comments: Recurrent pneumothorax Do you want consulting provider notified?: Yes 06/24/19 15:55 Consult Physician Routine Consulting Provider: Jaquan Barnard Consult Reason/Comments: left PTX, known to you Do you want consulting provider notified?: Yes Primary care physician: [facility] Course: Final diagnoses (1) Recurrent spontaneous pneumothorax status post bronchoscopy, and VATS with bleb resection, mechanical pleurodesis. 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 She is a former smoker until last week. She was admitted and had a chest tube to suction. She had significant improvement and a sore event was placed. She was seen outpatient by pulmonology and it was discontinued. She now has a one-day history of pain and discomfort in the left upper chest similar to previous episode. Outpatient x-ray showed a 15% pneumothorax. She was sent to the emergency room yesterday and was found to have ongoing pneumothorax. She is admitted for further treatment. Today she denies any significant chest pains, pressures, or shortness of breath. She denies any nausea or vomiting. She is tolerating regular diet. She complains of some anxiety regarding her health condition. Thoracic surgery consultation is pending 06/26/2019: Patient is doing well. She is without complaint today. She denies any chest pains, pressures, shortness of breath. She is been seen by thoracic surgery and they're planning a left-sided video-assisted fluoroscopy with bleb resection and pleurodesis with Dr López. Pulmonology seen her and reviewed her CT chest. It shows blebs in the apices of her other long as well. 06/27/2019 NPO, Scheduled for VATS/pleurodesis today with cardiothoracic surgery.VSS. Maintaining O2 sats in the high 90s on room air . Incentive spirometer up to 1500.Telemetry sinus rhythm. Status post VATS/pleurodesis, tolerated procedure well. Left pleural chest tube discontinued, follow-up chest x-ray pending. Ambulating in hallway, tolerating exertion well. Patient will be discharged home today pending final DC recommendations and clearance from both pulmonary and cardiothoracic surgery, in a stable condition with guarded prognosis. - Exam GENERAL: Sitting up in bed, no acute distress NECK: Normal range of motion, supple without lymphadenopathy or JVD, no thyromegaly LUNGS: Breath sounds clear to auscultation bilaterally with absent breath sounds at the left apex. No wheezes rales or rhonchi. HEART: Regular rate and rhythm without murmurs, rubs or gallops.S1S2 Normal ABDOMEN: Soft, nontender, normoactive bowel sounds. No guarding, no rebound. No masses appreciated. EXTREMITIES: Normal range of motion, no pitting or edema. No clubbing or cyanosis. NEUROLOGICAL: Cranial nerves II through XII grossly intact. Normal speech, normal gait. PSYCH: Normal mood, normal affect. SKIN: Warm, Dry, normal turgor, no rashes or lesions noted. The impression and plan of care has been dictated as directed. : I performed a history and examination of this patient, discussed the same with the dictator. I agree with the dictator's note ,documented as a scribe. Any additional findings or plans will be noted. Patient Condition at Discharge: Stable Plan - Discharge Summary Discharge Rx Participant: No New Discharge Prescriptions: Continue medroxyPROGESTERone [Depo-Provera] 150 mg IM Q90D Discharge Medication List medroxyPROGESTERone [Depo-Provera] 150 mg IM Q90D 06/13/19 [History] Follow up Appointment(s)/Referral(s): Marley López MD [STAFF PHYSICIAN] - 07/08/19 10:00 am (Will remove suture in office) Shen Jacobo Jr, DO [Primary Care Provider] - 3 Days Activity/Diet/Wound Care/Special Instructions: DISCHARGE INSTRUCTIONS: 1. No driving for 2 weeks, or until physician gives their ok. 2. No lifting, pushing, or pulling more than 10 pounds for 2 weeks. The physician will advise of any restriction changes. 3. Continue pain control per as needed orders. Alternate acetaminophen (Tylenol) and ibuprofen (Motrin/Advil) for pain. 4. Continue with incentive spirometry and splinting until otherwise directed by the physician. 5. Leave chest tube dressing for 24 hours. After that, remove all dressings and shower daily. 6. Routine incision care. No powders, lotions, ointments on incisions. Suture to be removed in the cardiac surgery office 7. Please call surgeon/COMPENSATION INTERN for temp greater than 101 F or purulent drainage from incisions. Any questions please call mortuary beautician, Vivian @ or Suhail @ Compression stockings to be sent home with patient.
== END 2019-06-28 15:40 | disposition home or self-care (01) | DRG 165 ==
LOC: EC 13:00 → 4SSUR 13:34 → OBSVTOIN 06-26 13:18 → 3SCARD 06-27 14:51 → 2SICU 06-27 15:49 → 3SCARD 06-28 10:58
PROVIDERS: ADMIT Family Medicine; ATTEND Family Medicine
PROC: 0BBJ4ZZ Excision of Left Lower Lung Lobe, Percutaneous Endoscopic Approach (ICD-10-PCS; 2019-06-27)
PROC: 0BBC4ZZ Excision of Right Upper Lung Lobe, Percutaneous Endoscopic Approach (ICD-10-PCS; 2019-06-27)
PROC: 0W9B40Z Drainage of Left Pleural Cavity with Drainage Device, Percutaneous Endoscopic Approach (ICD-10-PCS; 2019-06-27)
PROC: 0B5P4ZZ Destruction of Left Pleura, Percutaneous Endoscopic Approach (ICD-10-PCS; principal; 2019-06-27 08:05)
DX: J93.83 Other pneumothorax (principal); J43.2 Centrilobular emphysema; F41.9 Anxiety disorder, unspecified; K44.9 Diaphragmatic hernia without obstruction or gangrene; F17.200 Nicotine dependence, unspecified, uncomplicated; Z71.6 Tobacco abuse counseling; Z79.3 Long term (current) use of hormonal contraceptives; Z98.890 Other specified postprocedural states
CPT/HCPCS: 36415; 71045; 71046; 71260; 80048; 80053; 81025; 83735; 85025; 85610; 85730; 86850; 86900; 86901; 88307; 94640; 96374; 99285

== ENCOUNTER → 2019-06-24 | Outpatient (CLI) | payer OTHER ==
--- NOTE | 2019-06-24 12:50 | XR ---
EXAMINATION TYPE: XR chest 2V DATE OF EXAM: 06/24/2019 COMPARISON: NONE TECHNIQUE: PA and lateral views submitted. HISTORY: Pain FINDINGS: Biapical pleural thickening. There is a left apical pneumothorax measuring approximately 3. 7 cm. The lungs are clear and there is no pneumothorax, pleural effusion, or focal pneumonia. IMPRESSION: 1. Interval increase in size of the pneumothorax now measuring approximately 15%. Report called to re savitaing clinician.
== END | disposition home or self-care (01) ==
LOC: RADXRMAIN 12:29
PROVIDERS: ATTEND Family Medicine
DX: J93.83 Other pneumothorax (principal)
CPT/HCPCS: 71046

== ENCOUNTER → 2019-07-08 | Outpatient (CLI) | payer OTHER ==
--- NOTE | 2019-07-08 12:08 | XR ---
EXAMINATION TYPE: XR chest 2V DATE OF EXAM: 07/08/2019 COMPARISON: 06/28/2019 TECHNIQUE: PA and lateral views submitted. HISTORY: Chest tube follow-up FINDINGS: Small residual 5% left apical pneumothorax. Right lung clear. Biapical pleural thickening. No interst itial edema. No consolidative pneumonia. No overt failure. Heart size stable. Osseous structures othe rwise intact. IMPRESSION: 1. Less than 5% left apical pneumothorax.
== END | disposition home or self-care (01) ==
LOC: RADXRMAIN 11:50
PROVIDERS: ATTEND Nurse Practitioner Family
DX: J93.9 Pneumothorax, unspecified (principal)
CPT/HCPCS: 71046

== ENCOUNTER 2019-08-29 11:50 | Emergency (ER) | payer OTHER ==
[2019-08-29] MEDS ORDERED: ACETAMINOPHEN TAB 325 MG TAB PO STA (12:27)
--- NOTE | 2019-08-29 12:42 | XR ---
EXAMINATION TYPE: XR chest 2V DATE OF EXAM: 08/29/2019 COMPARISON: 07/08/2019 HISTORY: Cough, fever, and congestion TECHNIQUE: Frontal and lateral views of the chest are obtained. FINDINGS: New multifocal patchy opacities are seen in the bilateral lungs, right greater than left. Cardia mediastinal silhouette is within normal limits. Osseous structures are grossly intact. No siza ble pneumothorax or pleural effusion. IMPRESSION: New multifocal patchy airspace disease. Primary diagnostic consideration is for multifoc al pneumonia.
--- NOTE | 2019-08-29 13:34 | ED ---
Fever HPI - General Chief Complaint: Fever Stated Complaint: fever/cough Time Seen by Provider: 08/29/19 12:08 Source: patient Mode of arrival: ambulatory Limitations: no limitations - History of Present Illness Initial Comments: Patient is a 33-year-old female with history of recurrent spontaneous pneumothorax presenting to the emergency room with a chief complaint of a cough. Patient reports symptoms of an ongoing for about a week. Patient reports a nonproductive cough with occasional shortness of breath and wheezing especially at night. States she went to her primary care 4 days ago and was prescribed amoxicillin. Patient reports no improvement in symptoms. States she is also developed a fever which she has been able to keep somewhat under control with Tylenol and Motrin. - Related Data Home Medications Medication Instructions Recorded Confirmed medroxyPROGESTERone [Depo-Provera] 150 mg IM Q90D 06/13/19 06/24/19 Previous Rx's Medication Instructions Recorded Albuterol Inhaler [Ventolin Hfa 1 - 2 puff INHALATION RT-Q6H PRN 08/29/19 Inhaler] #1 inhaler Amoxicillin/Potassium Clav 1 tab PO Q12HR #20 tab 08/29/19 [Augmentin 875-125 Tablet] Guaifenesin/Dextromethorphan 1 each PO BID #30 tab 08/29/19 [Mucinex Dm ER 1,200-60 mg Tab] Allergies Allergy/AdvReac Type Severity Reaction Status Date / Time No Known Allergies Allergy Verified 08/29/19 11:55 Review of Systems ROS Statement: Those systems with pertinent positive or pertinent negative responses have been documented in the HPI. ROS Other: All systems not noted in ROS Statement are negative. Past Medical History Past Medical History: No Reported History Additional Past Medical History / Comment(s): Left-sided spontaneous pneumothorax 06/13/2019, 1/3 History of Any Multi-Drug Resistant Organisms: None Reported Past Surgical History: No Surgical Hx Reported Additional Past Surgical History / Comment(s): Thoravent placement 06/13/2019 with removal 06/16/2019. lung surgery /3 Past Psychological History: No Psychological Hx Reported Smoking Status: Former smoker Past Alcohol Use History: Occasional Past Drug Use History: None Reported - Past Family History Mother Family Medical History: No Reported History Father Family Medical History: No Reported History General Exam Limitations: no limitations General appearance: alert, in no apparent distress Head exam: Present: atraumatic, normocephalic, normal inspection Eye exam: Present: normal appearance, PERRL, EOMI Pupils: Present: normal accommodation ENT exam: Present: normal exam, normal oropharynx. Absent: mucous membranes moist, TM's normal bilaterally, normal external ear exam Neck exam: Present: normal inspection, full ROM Respiratory exam: Present: wheezes (Mild wheezing on the base of the right lung.). Absent: rhonchi, stridor Cardiovascular Exam: Present: regular rate, normal rhythm, normal heart sounds Extremities exam: Present: normal inspection, full ROM Back exam: Present: normal inspection, full ROM Neurological exam: Present: alert, oriented X3 Psychiatric exam: Present: normal affect, normal mood Skin exam: Present: warm, dry, intact, normal color Course Vital Signs 08/29/19 11:52 Temperature 100.7 F H Pulse Rate 110 H Respiratory 20 Rate Blood Pressure 122/80 O2 Sat by Pulse 98 Oximetry Medical Decision Making - Medical Decision Making Patient is a 33-year-old female presenting to emergency Department with a chief complaint of a fever and cough. Symptoms are not going for about 7 days patient was started on amoxicillin 4 days ago. On exam patient does appear to have mild wheezing in the right lung base. Chest x-ray does reveal multilobar pneumonia. CBC and CMP are unremarkable. Influenza negative. Blood cultures pending. Lactic acid 0.7. Patient appears well and is saturating at 100% on room air. Patient given 1 g Rocephin in the ED. Patient advised to stop the amoxicillin and will be started on a 10 day course of Augmentin. Patient also discharged with an albuterol inhaler and a cough suppressant. Return parameters were thoroughly discussed with patient was understanding and agreeable. Case discussed with physician. - Lab Data Result diagrams: 08/29/19 14:08 08/29/19 14:08 Lab Results 08/29/19 08/29/19 08/29/19 Range/Units 12:32 14:08 14:08 WBC 6.0 (3.8-10.6) k/uL RBC 3.88 (3.80-5.40) m/uL Hgb 12.2 (11.4-16.0) gm/dL Hct 36.7 (34.0-46.0) % MCV 94.6 (80.0-100.0) fL MCH 31.4 (25.0-35.0) pg MCHC 33.2 (31.0-37.0) g/dL RDW 13.2 (11.5-15.5) % Plt Count 330 (150-450) k/uL Neutrophils % 74 % Lymphocytes % 16 % Monocytes % 6 % Eosinophils % 1 % Basophils % 0 % Neutrophils # 4.5 (1.3-7.7) k/uL Lymphocytes # 1.0 (1.0-4.8) k/uL Monocytes # 0.4 (0-1.0) k/uL Eosinophils # 0.1 (0-0.7) k/uL Basophils # 0.0 (0-0.2) k/uL Sodium 135 L (137-145) mmol/L Potassium 4.7 (3.5-5.1) mmol/L Chloride 99 (98-107) mmol/L Carbon Dioxide 25 (22-30) mmol/L Anion Gap 11 mmol/L BUN 3 L (7-17) mg/dL Creatinine 0.49 L (0.52-1.04) mg/dL Est GFR (CKD-EPI)AfAm >90 (>60 ml/min/1.73 sqM) Est GFR (CKD-EPI)NonAf >90 (>60 ml/min/1.73 sqM) Glucose 101 H (74-99) mg/dL Plasma Lactic Acid José Miguel (0.7-2.0) mmol/L Calcium 9.4 (8.4-10.2) mg/dL Total Bilirubin 0.2 (0.2-1.3) mg/dL AST 27 (14-36) U/L ALT 14 (4-34) U/L Alkaline Phosphatase 66 (38-126) U/L Total Protein 7.0 (6.3-8.2) g/dL Albumin 4.1 (3.5-5.0) g/dL Influenza Type A RNA Not Detected (Not Detectd) Influenza Type B (PCR) Not Detected (Not Detectd) 08/29/19 Range/Units 14:08 WBC (3.8-10.6) k/uL RBC (3.80-5.40) m/uL Hgb (11.4-16.0) gm/dL Hct (34.0-46.0) % MCV (80.0-100.0) fL MCH (25.0-35.0) pg MCHC (31.0-37.0) g/dL RDW (11.5-15.5) % Plt Count (150-450) k/uL Neutrophils % % Lymphocytes % % Monocytes % % Eosinophils % % Basophils % % Neutrophils # (1.3-7.7) k/uL Lymphocytes # (1.0-4.8) k/uL Monocytes # (0-1.0) k/uL Eosinophils # (0-0.7) k/uL Basophils # (0-0.2) k/uL Sodium (137-145) mmol/L Potassium (3.5-5.1) mmol/L Chloride (98-107) mmol/L Carbon Dioxide (22-30) mmol/L Anion Gap mmol/L BUN (7-17) mg/dL Creatinine (0.52-1.04) mg/dL Est GFR (CKD-EPI)AfAm (>60 ml/min/1.73 sqM) Est GFR (CKD-EPI)NonAf (>60 ml/min/1.73 sqM) Glucose (74-99) mg/dL Plasma Lactic Acid José Miguel 0.7 (0.7-2.0) mmol/L Calcium (8.4-10.2) mg/dL Total Bilirubin (0.2-1.3) mg/dL AST (14-36) U/L ALT (4-34) U/L Alkaline Phosphatase (38-126) U/L Total Protein (6.3-8.2) g/dL Albumin (3.5-5.0) g/dL Influenza Type A RNA (Not Detectd) Influenza Type B (PCR) (Not Detectd) Disposition Clinical Impression: Multifocal pneumonia, Cough with fever Disposition: HOME SELF-CARE Condition: Stable Additional Instructions: Take prescribed medication as directed. Follow-up with primary care. Return to emergency department if symptoms worsen. Prescriptions: Guaifenesin/Dextromethorphan [Mucinex Dm ER 1,200-60 mg Tab] 1 each PO BID #30 tab Albuterol Inhaler [Ventolin Hfa Inhaler] 1 - 2 puff INHALATION RT-Q6H PRN #1 inhaler PRN Reason: Wheezing Is patient prescribed a controlled substance at d/c from ED?: No Referrals: Aki Swartz MD [Primary Care Provider] - 1-2 days Time of Disposition: 15:40
[2019-08-29 14:21] LABS: Basophils % (A) 0 %; Eosinophils # (A) 0.1 k/uL (0-0.7); Eosinophils % (A) 1 %; HCT 36.7 % (34.0-46.0); HGB 12.2 gm/dL (11.4-16.0); Lymphocytes % (A) 16 %; MCH 31.4 pg (25.0-35.0); MCHC 33.2 g/dL (31.0-37.0); MCV 94.6 fL (80.0-100.0); Mean Platelet Volume 7.7; Monocytes # (A) 0.4 k/uL (0-1.0); Monocytes % (A) 6 %; Neutrophils # (A) 4.5 k/uL (1.3-7.7); Neutrophils % (A) 74 %; Platelet Count 330 k/uL (150-450); RBC 3.88 m/uL (3.80-5.40); RDW 13.2 % (11.5-15.5)
[2019-08-29 14:41] LABS: ALT 14 U/L (4-34); AST 27 U/L (14-36); African American GFR (CKD) >90 (>60 ml/min/1.73 sqM); Albumin 4.1 g/dL (3.5-5.0); Alkaline Phosphatase 66 U/L (38-126); Anion Gap 11 mmol/L; Blood Urea Nitrogen 3 mg/dL (7-17); Calcium 9.4 mg/dL (8.4-10.2); Carbon Dioxide 25 mmol/L (22-30); Chloride 99 mmol/L (98-107); Glucose 101 mg/dL (74-99); Non-African American GFR(CKD) >90 (>60 ml/min/1.73 sqM); Potassium 4.7 mmol/L (3.5-5.1); Sodium 135 mmol/L (137-145); Total Bilirubin 0.2 mg/dL (0.2-1.3)
[2019-08-29] MEDS ORDERED: cefTRIAXone IN SWFI 1,000 MG/10 ML SYRINGE IVP STA (15:11)
[2019-08-29 15:20] VITALS: BP 132/76; PULSE 98; RESP 16; TEMP 99.7
== END 2019-08-29 15:37 | disposition home or self-care (01) ==
LOC: EC 11:50
DX: J18.9 Pneumonia, unspecified organism (principal); Z79.3 Long term (current) use of hormonal contraceptives; Z87.891 Personal history of nicotine dependence; Z87.09 Personal history of other diseases of the respiratory system
CPT/HCPCS: 36415; 80053; 83605; 85025; 87040; 87502; 71046; 96374; 99283; J0696

== ENCOUNTER → 2019-09-02 | Outpatient (CLI) | payer OTHER ==
--- NOTE | 2019-09-02 12:13 | CT ---
EXAMINATION TYPE: CT chest wo con DATE OF EXAM: 09/02/2019 COMPARISON: CT chest dated 06/25/2019 HISTORY: Pneumonia, recent pneumothorax CT DLP: 126.8 mGycm. Automated Exposure Control for Dose Reduction was Utilized. TECHNIQUE: CT scan of the thorax is performed without IV contrast. FINDINGS: Lack of intravenous contrast could compromise sensitivity LUNGS: The lungs show no concerning parenchymal mass or nodule identified. There is no pleural effu isidro or pneumothorax seen, previous pneumothorax has resolved, there is a postprocedural clipping at the left upper lobe. Bilateral groundglass opacities in the upper lobes are nonspecific, right lower lobe and left lower lobe also show some tree-in-bud densities and groundglass foci as does the right middle lobe. The apical bullous changes on the right are again seen. The tracheobronchial tree is pa tent, there is some bronchial wall thickening peripherally in the right lower lobe. Left lower lobe m edially shows some soft tissue attenuation which may be postprocedural, some minimal atelectatic almonte ges also suspected along the right costophrenic angle. MEDIASTINUM: Lack of IV contrast is noted to limit evaluation for mediastinal and especially hilar ad enopathy. There are no definitive greater than 1 cm hilar or mediastinal lymph nodes. No cardiomega ly or pericardial effusion is seen. There is a hiatal hernia. OTHER: No additional significant abnormality is seen. IMPRESSION: Bilateral nonspecific alveolitis, bronchial wall thickening, tree in bud densities, corre late for possible bronchopneumonia including viral and opportunistic infections in the proper clinica l setting, hypersensitivity pneumonitis and drug toxicity, and chronic interstitial diseases, alveola r edema, fungal infections or traumatic lung injury.
== END | disposition home or self-care (01) ==
LOC: RADCTMAIN 11:22
PROVIDERS: ATTEND Internal Medicine Pulmonary Disease
DX: R91.8 Other nonspecific abnormal finding of lung field (principal); J93.9 Pneumothorax, unspecified
CPT/HCPCS: 71250